=== PATIENT | female | born 1960 | race Caucasian/White ===

== ENCOUNTER 2018-09-20 15:32 | Emergency (ER) | payer OTHER ==
[~2018-09-20] VITALS: Ht 162.6 cm; Wt 90.7 kg
[~2018-09-20 15:32] MED LIST: ASP81CT; DIPH1TAB25 PO; Flexeril; IBUP-1773 PO; MTP25TSR
--- OUTSIDE RECORDS SUMMARY | 2018-09-20 15:37 | XMS REPORT ---
Author Author RACHELE OCHOA [facility] Address [address] [place] [address] Care Team Providers Care Firewall Administrator Name Role Phone RACHELE OCHOA Unavailable PROBLEMS Type Condition ICD9-CM Code [id number] Code Onset Dates Condition Status SNOMED Code Problem Hypercholesterolemia E78.00 Active 80767881 Problem Psoriasis L40.9 Active 0498846 Problem Left shoulder pain M25.512 Active 99496342 Problem Wellness examination Z00.00 Active 484111389 Problem Flexural eczema L20.82 Active 10071555 Problem Other chronic pain G89.29 Active 84031096 ALLERGIES No Information ENCOUNTERS Encounter Location Date Diagnosis [place] [address] [id number] [place] [address] 54843- 0221 May, Hypercholesterolemia E78.00 [facility] [id number] [place] [address] 70535- 9994 May, Wellness examination Z00.00 [place] [id number] [place] [address] 77058- 9760 Apr, Elevated fasting glucose R73.01 and Wellness examination Z00.00 [place] [address] [place] [id number] [place] [address] 37047- 1276 Apr, Elevated fasting glucose R73.01 [facility] [address] [place] [address] 37016- 2690 Apr, [place] [id number] [place] [address] 22121- 3421 Apr, Psoriasis L40.9 [place] [address] [id number] [place] [address] 69092- 6718 Apr, Psoriasis L40.9 [place] [address] [id number] [place] [address] 78602- 2488 March, Psoriasis L40.9 [place] [address] 93748- 7883 Feb, [facility] [id number] [place] [address] 57299- 1700 Feb, [place] [address] 24356- 5019 Jan, Left shoulder pain M25.512 and Flexural eczema L20.82 [facility] WALK IN [place] [id number] [place] [address] 00397 -9718 Jan, Rash R21 [place] [address] 54746- 4566 Oct, Other chronic pain G89.29 and Pain in right shoulder M25.511 [place] [address] 91813- 2682 Apr, Plantar fasciitis of right foot M72.2 [place] [id number] [place] [address] 24620- 6944 March, Plantar fasciitis M72.2 [place] [id number] [place] [address] 52244- 5041 Jan, Impingement syndrome, shoulder, left M75.42 [place] [id number] [place] [address] 80868- 5844 Dec, Impingement syndrome, shoulder, left M75.42 [place] [id number] [place] [address] 26025- 4952 Oct, Left shoulder pain M25.512 and Wellness examination Z00.00 [facility] [id number] [place] [address] 93813 -4885 Oct, Pain in left shoulder M25.512 [place] [address] 34864- 1266 Apr, Plantar fasciitis 728.71 [facility] [address] [id number] [place] [address] 40867- 0051 March, Fasciitis 729.4 and Calcaneal spur 726.73 [facility] [address] [id number], [place] [address]- 4334 Feb, [facility] [address] [id number] [place] [address] 87249- 2449 Feb, [facility] [address] [id number], [place] [address]- 2808 Jan, [facility] [address] [id number] [place] [address] 26161- 2432 Jan, [facility] [address] [place] [id number] [place] [address] 55910- 1276 Jan, [facility] [id number] [place] [address] 93184- 8471 Jan, [facility] [address] [facility] [id number], [place] [address]- 7578 May, [facility] [address] [place] [id number], [place] [address]- 4630 May, [facility] [address] [id number], [place] [address]- 1881 March, [facility] [address] [facility] [id number], [place] [address]- 3508 March, [facility] [address] [facility] [id number][place] 3312 Feb, [facility] [address] [facility] [id number] [place] [address] 373987- 3745 Feb, [facility] [address] [facility] [id number], [place] [address]- 0466 Jan, [facility] [address] [facility] [id number] [place] [address] 94261- 6600 Jan, [facility] [address] [id number] [place] [address]- 5883 Jan, [facility] [place] [facility] [address] [id number] [place] [address]- 7274 Jan, [facility] [place] [facility] [address] [facility] [id number] [place] [address]- 9908 Oct, [facility] [place] [facility] [address] [id number] [place] [address]- 1293 Oct, [facility] [place] [facility] [address] [id number] [place] [address]- 9766 Aug, [facility] [place] [facility] [address] [facility] [id number] [place] [address]- 5375 Jan, [facility] [place] [facility] [address] [facility] [id number] [place] [address]- 7655 Dec, [facility] [place] [facility] [address] [facility] [id number] [place] [address]- 6970 Dec, [facility] [place] [facility] [address] [facility] [id number] [place] [address]- 6368 Nov, [facility] [place] [facility] [address] [facility] [id number] [place] [address]- 0818 Nov, [facility] [place] [facility] [address] [id number], [place] [address]- 7418 Nov, [facility] [place] [facility] [address] [id number] [place] [address]- 4636 Oct, [facility] [place] [facility] [address] [id number] [place] [address]- 8364 Nov, [facility] [place] [facility] [address] [facility] [id number] [place] [address]- 2431 Oct, [facility] [place] [facility] [address] [facility] [id number] [place] [address]- 0054 Sep, [facility] [place] [facility] [address] [facility] [id number] [place] [address]- 2883 Sep, [facility] [address] [facility] [id number], [place] [address]- 7443 Sep, [facility] [address] [facility] [id number] [place] 8502 Oct, IMMUNIZATIONS No Known Immunizations SOCIAL HISTORY Never Assessed REASON FOR VISIT Lab (walk-in) PLAN OF CARE VITAL SIGNS MEDICATIONS Unknown Medications RESULTS No Results PROCEDURES Procedure Date Ordered Result Body Site LIPID PANEL June 19, 2018 COMPLETE CBC W/AUTO DIFF WBC June 19, 2018 VENIPUNCT, ROUTINE* June 19, 2018 ASSAY THYROID STIM HORMONE June 19, 2018 INSTRUCTIONS MEDICATIONS ADMINISTERED No Known Medications MEDICAL (GENERAL) HISTORY Type Description Date Medical History HTN Medical History Unspecified arthropathy, site unspecified Medical History Other seborrheic keratosis
--- OUTSIDE RECORDS SUMMARY | 2018-09-20 15:37 | XMS REPORT ---
Author Author RACHELE OCHOA [facility] Address [address] [place] [address] Care Team Providers Care Acupuncturist Name Role Phone RACHELE OCHOA Unavailable PROBLEMS Type Condition ICD9-CM Code MIK55-QN Code Onset Dates Condition Status SNOMED Code Problem Hypercholesterolemia E78.00 Active 43201529 Problem Psoriasis L40.9 Active 6186422 Problem Left shoulder pain M25.512 Active 27185891 Problem Wellness examination Z00.00 Active 067968705 Problem Flexural eczema L20.82 Active 48576276 Problem Other chronic pain G89.29 Active 03986960 ALLERGIES No Information ENCOUNTERS Encounter Location Date Diagnosis [place] [address] [place] [address] 82227- 6925 May, Hypercholesterolemia E78.00 [facility] [id number] [place] [address] 45996- 9080 May, Wellness examination Z00.00 [place] [id number] [place] [address] 48120- 7988 Apr, Elevated fasting glucose R73.01 and Wellness examination Z00.00 [place] [address] [address] [id number] [place] [address] 45474- 3835 Apr, Elevated fasting glucose R73.01 [facility] [address] [place] [address] 52140- 3459 Apr, [place] [address] [id number] [place] [address] 40480- 5903 Apr, Psoriasis L40.9 [place] [address] [place] [address] [id number] [place] [address] 66600- 6465 Apr, Psoriasis L40.9 [place] [address] [address] [id number] [place] [address] 58619- 8558 March, Psoriasis L40.9 [place] [address] 13115- 3480 Feb, [facility] [address] [id number] [place] [address] 39121- 5287 Feb, [place] [address] 41616- 3635 Jan, Left shoulder pain M25.512 and Flexural eczema L20.82 [facility] WALK IN [place] [id number] [place] [address] 69061 -8571 Jan, Rash R21 [place] [address] 00978- 7420 Oct, Other chronic pain G89.29 and Pain in right shoulder M25.511 [place] [address] 32694- 1869 Apr, Plantar fasciitis of right foot M72.2 [place] [address] [id number] [place] [address] 09977- 3601 March, Plantar fasciitis M72.2 [place] [address] [id number] [place] [address] 41807- 6821 Jan, Impingement syndrome, shoulder, left M75.42 [place] [address] [address] [id number] [place] [address] 91830- 1826 Dec, Impingement syndrome, shoulder, left M75.42 [place] [address] [address] [id number] [place] [address] 02709- 0068 Oct, Left shoulder pain M25.512 and Wellness examination Z00.00 [facility] W[facility] [id number] [place] [address] 51999 -7084 Oct, Pain in left shoulder M25.512 [place] [address] 84146- 9026 Apr, Plantar fasciitis 728.71 [facility] [id number] [place] [address] 59714- 2186 March, Fasciitis 729.4 and Calcaneal spur 726.73 [facility] [address] [id number], [place] [address]- 4136 Feb, [facility] [id number] [place] [address] 55996- 6106 Feb, [facility] [address] [id number], [place] [address]- 6502 Jan, [facility] [address] [id number] [place] [address] 59499- 4386 Jan, [facility] [address] [place] [id number] [place] [address] 83984- 5897 Jan, [facility] [address] [id number] [place] [address] 18200- 9822 Jan, [facility] [address] [facility] [place] [id number], [place] [address]- 5580 May, [facility] [address] [place] [id number], [place] [address]- 7274 May, [facility] [address] [place] [id number], [place] [address]- 7430 March, [facility] [address] [facility] [id number], [place] [address]- 0698 March, [facility] [address] [facility] [id number] 6534 Feb, [facility] [address] [facility] [id number] [place] [address] 737651- 9275 Feb, [facility] [address] [facility] [id number], [place] [address]- 9919 Jan, [facility] [address] [facility] [id number] [place] [address] 05666- 1550 Jan, [facility] [address] [id number] [place] [address]- 5658 Jan, [facility] [place] [facility] [address] [id number] [place] [address]- 7090 Jan, [facility] [place] [facility] [address] [facility] [id number] [place] [address]- 2983 Oct, [facility] [place] [facility] [address] [id number] [place] [address]- 8113 Oct, [facility] [place] [facility] [address] [id number] [place] [address]- 7335 Aug, [facility] [place] [facility] [address] [facility] [id number] [place] [address]- 7335 Jan, [facility] [place] [facility] [address] [facility] [id number] [place] [address]- 1315 Dec, [facility] [place] [facility] [address] [facility] [id number] [place] [address]- 6764 Dec, [facility] [place] [facility] [address] [facility] [place] [id number] [place] [address]- 7613 Nov, [facility] [place] [facility] [address] [facility] [id number] [place] [address]- 4524 Nov, [facility] [place] [facility] [address] [id number], [place] [address]- 9277 Nov, [facility] [place] [facility] [address] [id number] [place] [address]- 0149 Oct, [facility] [place] [facility] [address] [id number] [place] [address]- 8390 Nov, [facility] [place] [facility] [address] [facility] [id number] [place] [address]- 6433 Oct, [facility] [place] [facility] [address] [facility] [id number] [place] [address]- 2457 Sep, [facility] [place] [facility] [address] [facility] [id number] [place] [address]- 6176 Sep, [facility] [address] [facility] [id number], [place] [address]- 9279 05 Sep, 2009 [facility] [address] [facility] [id number] [place]- 8790 Oct, IMMUNIZATIONS No Known Immunizations SOCIAL HISTORY Never Assessed REASON FOR VISIT Lab (walk-in) PLAN OF CARE VITAL SIGNS MEDICATIONS Unknown Medications RESULTS No Results PROCEDURES Procedure Date Ordered Result Body Site COMPREHEN METABOLIC PANEL May 18, 2018 MANUAL CELL COUNT, EACH May 18, 2018 VENIPUNCT, ROUTINE* May 18, 2018 INSTRUCTIONS MEDICATIONS ADMINISTERED No Known Medications MEDICAL (GENERAL) HISTORY Type Description Date Medical History HTN Medical History Unspecified arthropathy, site unspecified Medical History Other seborrheic keratosis
--- OUTSIDE RECORDS SUMMARY | 2018-09-20 15:37 | XMS REPORT ---
Author Author RACHELE OCHOA [facility] Address [address] [place] [address] Care Team Providers Care Transportation Supervisor Name Role Phone RACHELE OCHOA Unavailable PROBLEMS Type Condition ICD9-CM Code HBV26-VK Code Onset Dates Condition Status SNOMED Code Problem Hypercholesterolemia E78.00 Active 05501637 Problem Psoriasis L40.9 Active 2387346 Problem Left shoulder pain M25.512 Active 38873554 Problem Wellness examination Z00.00 Active 938071653 Problem Flexural eczema L20.82 Active 42232380 Problem Other chronic pain G89.29 Active 31221521 ALLERGIES No Information ENCOUNTERS Encounter Location Date Diagnosis [place] [address] [place] [id number] [place] [address] 56158- 5584 May, Hypercholesterolemia E78.00 [facility] [id number] [place] [address] 41327- 2560 May, Wellness examination Z00.00 [place] [id number] [place] [address] 73609- 5147 Apr, Elevated fasting glucose R73.01 and Wellness examination Z00.00 [place] [address] [place] [id number] [place] [address] 66622- 5217 Apr, Elevated fasting glucose R73.01 [facility] [address] [place] [address] 59618- 8129 Apr, [place] [id number] [place] [address] 48842- 4387 Apr, Psoriasis L40.9 [place] [address] [place] [id number] [place] [address] 92186- 7637 Apr, Psoriasis L40.9 [place] [address] [place] [id number] [place] [address] 15409- 6254 March, Psoriasis L40.9 [place] [address] 85874- 1655 Feb, [facility] [address] [id number] [place] [address] 05501- 6247 Feb, [place] [address] 22403- 2347 Jan, Left shoulder pain M25.512 and Flexural eczema L20.82 [facility] WALK IN [place] [id number] [place] [address] 52132 -0820 Jan, Rash R21 [place] [address] 60973- 9628 Oct, Other chronic pain G89.29 and Pain in right shoulder M25.511 [place] [address] 57145- 0017 Apr, Plantar fasciitis of right foot M72.2 [place] [address] [place] [address] [id number] [place] [address] 92170- 9883 March, Plantar fasciitis M72.2 [place] [address] [place] [id number] [place] [address] 03344- 7100 Jan, Impingement syndrome, shoulder, left M75.42 [place] [address] [place] [id number] [place] [address] 58952- 0316 Dec, Impingement syndrome, shoulder, left M75.42 [place] [address] [place] [id number] [place] [address] 01401- 9001 Oct, Left shoulder pain M25.512 and Wellness examination Z00.00 [facility] [id number] [place] [address] 96676 -2093 Oct, Pain in left shoulder M25.512 [place] [address] 82953- 1656 Apr, Plantar fasciitis 728.71 [facility] [id number] [place] [address] 42092- 8400 March, Fasciitis 729.4 and Calcaneal spur 726.73 [facility] [address] [id number] [place] [address]- 6778 Feb, [facility] [address] [id number] [place] [address] 81833- 7123 Feb, [facility] [address] [id number] [place] [address]- 9080 Jan, [facility] [address] [id number] [place] [address] 70203- 7291 Jan, [facility] [address] [place] [id number] [place] [address] 49030- 3997 Jan, [facility] [id number] [place] [address] 13614- 1689 Jan, [facility] [address] [facility] [id number] [place] [address]- 2339 May, [facility] [address] [place] [address] [id number] [place] [address]- 3245 May, [facility] [address] [place] [address] [id number] [place] [address]- 5627 March, [facility] [address] [facility] [id number] [place] [address]- 7750 March, [facility] [address] [facility] [id number] [place] 0834 Feb, [facility] [address] [facility] [id number] [place] [address] 581594- 6877 Feb, [facility] [address] [facility] [id number] [place] [address]- 4424 Jan, [facility] [address] [facility] [id number] [place] [address] 68638- 2874 Jan, [facility] [address] [id number] [place] [address]- 7243 Jan, [facility] [place] [facility] [address] [id number] [place] [address]- 7698 Jan, [facility] [place] [facility] [address] [facility] [id number] [place] [address]- 5335 Oct, [facility] [place] [facility] [address] [id number] [place] [address]- 7692 Oct, [facility] [place] [facility] [address] [id number] [place] [address] Aug, [facility] [place] [facility] [address] [facility] [id number] [place] [address] Jan, [facility] [place] [facility] [address] [facility] [id number] [place] [address] Dec, [facility] [place] [facility] [address] [facility] [id number] [place] [address] Dec, [facility] [place] [facility] [address] [facility] [id number] [place] [address] Nov, [facility] [place] [facility] [address] [facility] [id number] [place] [address] Nov, [facility] [place] [facility] [address] [id number] [place] [address] Nov, [facility] [place] [facility] [address] [id number] [place] [address] Oct, [facility] [place] [facility] [address] [id number] [place] [address] Nov, [facility] [place] [facility] [address] [facility] [id number] [place] [address] Oct, [facility] [place] [facility] [address] [facility] [id number] [place] [address] Sep, [facility] [place] [facility] [address] [facility] [id number] [place] [id number] Sep, [facility] [address] [facility] [id number] [place] [address] Sep, [facility] [address] [facility] [id number] [place] [address] Oct, IMMUNIZATIONS No Known Immunizations SOCIAL HISTORY Never Assessed REASON FOR VISIT Lab (walk-in) PLAN OF CARE VITAL SIGNS MEDICATIONS Unknown Medications RESULTS No Results PROCEDURES Procedure Date Ordered Result Body Site GLYCATED HEMOGLOBIN TEST May 26, 2018 INSTRUCTIONS MEDICATIONS ADMINISTERED No Known Medications MEDICAL (GENERAL) HISTORY Type Description Date Medical History HTN Medical History Unspecified arthropathy, site unspecified Medical History Other seborrheic keratosis
--- OUTSIDE RECORDS SUMMARY | 2018-09-20 15:37 | XMS REPORT ---
Author Author RACHELE OCHOA [facility] Address [address] [place] [address] Care Team Providers Care Painter Apprentice Name Role Phone RACHELE OCHOA Unavailable PROBLEMS Type Condition ICD9-CM Code [id number] Code Onset Dates Condition Status SNOMED Code Problem Hypercholesterolemia E78.00 Active 14115590 Problem Psoriasis L40.9 Active 7046095 Problem Left shoulder pain M25.512 Active 63058426 Problem Wellness examination Z00.00 Active 235133731 Problem Flexural eczema L20.82 Active 45638737 Problem Other chronic pain G89.29 Active 94133002 ALLERGIES Substance Reaction Event Type Date Status Beta-blockers (beta-adrenergic Blocking Agts) Depression Non Drug Allergy March, Active ENCOUNTERS Encounter Location Date Diagnosis [place] [address] [place] [id number] [place] [address] 81311- 5406 May, Hypercholesterolemia E78.00 [facility] [id number] [place] [address] 78812- 7253 May, Wellness examination Z00.00 [facility] [id number] [place] [address] 71519- 9103 Apr, Elevated fasting glucose R73.01 and Wellness examination Z00.00 [facility] [id number] [place] [address] 79063- 0210 Apr, Elevated fasting glucose R73.01 [facility] [id number] [place] [address] 41282- 4101 Apr, [facility] [id number] [place] [address] 63709- 8775 Apr, Psoriasis L40.9 [facility] [address] 29185- 4206 Apr, Psoriasis L40.9 [place] [id number] [place] [address] 76548- 7085 March, Psoriasis L40.9 [place] [id number] [place] [address] 30358- 7561 Feb, [place] [address] 78590- 9062 Feb, [place] [address] 33188- 8426 Jan, Left shoulder pain M25.512 and Flexural eczema L20.82 [facility] [place] [address] 54082 -5745 Jan, Rash R21 [place] [address] 45410- 9362 Oct, Other chronic pain G89.29 and Pain in right shoulder M25.511 [place] [address] 89860- 6181 Apr, Plantar fasciitis of right foot M72.2 [place] [address] 48844- 2358 March, Plantar fasciitis M72.2 [place] [address] 14271- 6564 Jan, Impingement syndrome, shoulder, left M75.42 [place] [id number] [place] [address] 38227- 2377 Dec, Impingement syndrome, shoulder, left M75.42 [place] [address] 85983- 8491 Oct, Left shoulder pain M25.512 and Wellness examination Z00.00 [facility] [id number] [place] [address] 71036 -9777 Oct, Pain in left shoulder M25.512 [facility] [address] [place] [address] [id number] [place] [address]- 1508 Apr, Plantar fasciitis 728.71 [facility] [id number] [place] [address]- 3176 March, Fasciitis 729.4 and Calcaneal spur 726.73 [facility] [id number] [place] [address], [place] [address]- 9600 Feb, [facility] [address] [facility] [id number] [place] [address]- 8680 Feb, [facility] [id number] [place] [address], [place]- 9562 Jan, [facility] [id number] [place] [address]- 9173 Jan, [facility] [id number] [place] [address], [place] [address]- 7676 Jan, [facility] [address] [address]- 7860 Jan, [facility] [id number] [place] [address]- 4012 May, [facility] [address] [address]- 0994 May, [facility] [address] [address]- 0576 March, [facility] [address] [place] [address] [id number] [address]- 3966 March, [facility] [address] [place] [address] [id number] [place] [address]- 4432 Feb, [facility] [address] [facility] [id number] [place] [address]- 5376 Feb, [facility] [address] [address]- 2835 Jan, [facility] [address] [id number] [place] [address]- 0276 Jan, [facility] [place] [facility] [address] [id number] [place] [address]- 7123 Jan, [facility] [place] [facility] [address] [id number] [place] [address]- 3286 Jan, [facility] [place] [facility] [address] [id number] [place] [address]- 9111 Oct, [facility] [place] [facility] [address] [id number] [place] [address]- 9866 Oct, [facility] [place] [facility] [address] [id number] [place] [address]- 0302 Aug, [facility] [place] [facility] [address] [id number] [place] [address]- 8892 Jan, [facility] [place] [facility] [address] [id number] [place] [address]- 1543 Dec, [facility] [place] [facility] [address] [id number] [place] [address]- 1866 Dec, [facility] [place] [facility] [address] [id number] [place] [address]- 7363 Nov, [facility] [place] [facility] [address] [id number] [place] [address]- 9298 Nov, [facility] [place] [facility] [address] [id number] [address]- 2694 Nov, [facility] [place] [facility] [address] [id number] [place] [address]- 8647 Oct, [facility] [place] [facility] [address] [id number] [place] [address]- 6005 Nov, [facility] [place] [facility] [address] [id number] [place] [address]- 6817 Oct, [facility] [place] [facility] [address] [facility] [id number] [place] [address]- 6272 Sep, [facility] [address] [facility] [id number] [address]- 5144 Sep, [facility] [address] [facility] [id number] [place] [address]- 4267 Sep, [facility] [address] [facility] [id number] [place] [address]- 0742 Oct, IMMUNIZATIONS No Known Immunizations SOCIAL HISTORY Never Assessed REASON FOR VISIT Rash (not getting better) , patient states she has been seen before for the same problem and is not getting better -- anna ulrich PLAN OF CARE Activity Details Follow Up for WWE Reason: VITAL SIGNS Height 63 in 2018-03-30 Weight 188.0 lbs 2018-03-30 Temperature 97.1 degrees Fahrenheit 2018-03-30 BMI 33.30 kg/m2 2018-03-30 Blood pressure systolic 118 mmHg 2018-03-30 Blood pressure diastolic 72 mmHg 2018-03-30 MEDICATIONS Medication Instructions Dosage Frequency Start Date End Date Duration Status Triamcinolone Acetonide 0.1 % Externally Twice a day 1 application to affected area 12Jan, Active Naproxen 500 mg Orally every 12 hrs 1 tablet with food or milk as needed Jan, Active Fluocinonide 0.05 % Externally 2 times a day small amount March, Apr, 30 days Active Clobetasol Prop & Cleanser 0.05 % Externally 2 times a day apply to scalp March, Apr, 14 days Active RESULTS No Results PROCEDURES No Known procedures INSTRUCTIONS MEDICATIONS ADMINISTERED No Known Medications MEDICAL (GENERAL) HISTORY Type Description Date Medical History HTN Medical History Unspecified arthropathy, site unspecified Medical History Other seborrheic keratosis
--- OUTSIDE RECORDS SUMMARY | 2018-09-20 15:37 | XMS REPORT ---
Author Author RACHELE OCHOA [facility] Address [address] [place] [address] Care Team Providers Care Rail Car Mechanic Name Role Phone RACHELE OCHOA Unavailable PROBLEMS Type Condition ICD9-CM Code [id number] Code Onset Dates Condition Status SNOMED Code Problem Hypercholesterolemia E78.00 Active 29943975 Problem Psoriasis L40.9 Active 6205818 Problem Left shoulder pain M25.512 Active 97381398 Problem Wellness examination Z00.00 Active 649801219 Problem Flexural eczema L20.82 Active 96661102 Problem Other chronic pain G89.29 Active 19491984 ALLERGIES No Information ENCOUNTERS Encounter Location Date Diagnosis [place] [address] [place] [id number] [place] [address] 28686- 4104 May, Hypercholesterolemia E78.00 [facility] [id number] [place] [address] 04311- 9409 May, Wellness examination Z00.00 [place] [id number] [place] [address] 24531- 8232 Apr, Elevated fasting glucose R73.01 and Wellness examination Z00.00 [place] [address] [place] [id number] [place] [address] 06617- 8729 Apr, Elevated fasting glucose R73.01 [facility] [id number] [place] [address] 31242- 9850 Apr, [place] [address] [place] [id number] [place] [address] 75557- 9726 Apr, Psoriasis L40.9 [place] [address] [place] [id number] [place] [address] 19750- 4848 Apr, Psoriasis L40.9 [place] [address] [place] [id number] [place] [address] 64260- 4629 March, Psoriasis L40.9 [place] [address] 08031- 8479 Feb, [facility] [address] [place] [id number] [place] [address] 01298- 2166 Feb, [place] [address] 78256- 8066 Jan, Left shoulder pain M25.512 and Flexural eczema L20.82 [facility] [place] [address] [address] [id number] [place] [address] 75238 -2993 Jan, Rash R21 [place] [address] 28565- 7481 Oct, Other chronic pain G89.29 and Pain in right shoulder M25.511 [place] [address] 09346- 6857 Apr, Plantar fasciitis of right foot M72.2 [place] [address] [place] [id number] [place] [address] 57786- 0840 March, Plantar fasciitis M72.2 [place] [address] [place] [id number] [place] [address] 99184- 0316 Jan, Impingement syndrome, shoulder, left M75.42 [place] [address] [place] [id number] [place] [address] 81412- 4314 Dec, Impingement syndrome, shoulder, left M75.42 [place] [address] [place] [id number] [place] [address] 02294- 0501 Oct, Left shoulder pain M25.512 and Wellness examination Z00.00 [facility] [address] [place] [address] [id number] [place] [address] 60618 -1019 Oct, Pain in left shoulder M25.512 [place] [address] 74461- 3606 Apr, Plantar fasciitis 728.71 [facility] [id number] [place] [address] 07029- 0552 March, Fasciitis 729.4 and Calcaneal spur 726.73 [facility] [address] [id number] [address]- 7154 Feb, [facility] [id number] [place] [address] 25246- 5842 Feb, [facility] [address] [id number], [place] [address]- 3201 Jan, [facility] [id number] [place] [address] 04245- 5028 Jan, [facility] [address] [place] [id number] [place] [address] 26348- 3741 Jan, [facility] [address] [place] [id number] [place] [address] 18401- 6490 Jan, [facility] [address] [facility] [id number][place] [address]- 2555 May, [facility] [address] [id number], [place] [address]- 5559 May, [facility] [address] [id number], [place] [address]- 2889 March, [facility] [address] [facility] [id number], [place] [address]- 9492 March, [facility] [address] [facility] [id number]- 4961 Feb, [facility] [address] [facility] [id number] [place] [address] 346431- 5839 Feb, [facility] [address] [facility] [id number], [place] [address]- 2575 Jan, [facility] [address] [facility] [id number] [place] [address] 15193- 3762 Jan, [facility] [address] [id number] [place] [address]- 5917 Jan, [facility] [place] [facility] [address] [id number] [place] [address]- 6227 Jan, [facility] [place] [facility] [address] [facility] [id number] [place] [address]- 5884 Oct, [facility] [place] [facility] [address] [id number] [place] [address]- 6827 Oct, [facility] [place] [facility] [address] [id number] [place] [address]- 3066 Aug, [facility] [place] [facility] [address] [facility] [id number] [place] [address]- 3212 Jan, [facility] [place] [facility] [address] [facility] [id number] [place] [address]- 5871 Dec, [facility] [place] [facility] [address] [facility] [id number] [place] [address]- 5813 Dec, [facility] [place] [facility] [address] [facility] [id number] [place] [address]- 9204 Nov, [facility] [place] [facility] [address] [facility] [id number] [place] [address]- 9477 Nov, [facility] [place] [facility] [address] [id number], [place] [address]- 7085 Nov, [facility] [place] [facility] [address] [id number] [place] [address]- 1589 Oct, [facility] [place] [facility] [address] [id number] [place] [address]- 0119 Nov, [facility] [place] [facility] [address] [facility] [id number] [place] [address]- 0718 Oct, [facility] [place] [facility] [address] [facility] [id number] [place] [address]- 2512 Sep, [facility] [place] [facility] [address] [facility] [id number] [place] [address]- 4857 Sep, [facility] [address] [facility] [id number] [place] [address]- 0907 Sep, [facility] [address] [facility] [id number] [place] [address]- 4473 Oct, IMMUNIZATIONS No Known Immunizations SOCIAL HISTORY Never Assessed REASON FOR VISIT deferred lab PLAN OF CARE VITAL SIGNS MEDICATIONS Unknown Medications RESULTS No Results PROCEDURES No Known procedures INSTRUCTIONS MEDICATIONS ADMINISTERED No Known Medications MEDICAL (GENERAL) HISTORY Type Description Date Medical History HTN Medical History Unspecified arthropathy, site unspecified Medical History Other seborrheic keratosis
--- OUTSIDE RECORDS SUMMARY | 2018-09-20 15:37 | XMS REPORT ---
Author Author RACHELE OCHOA [facility] [address] Address [address] [place] [address] Care Team Providers Care Barnworker Groom Name Role Phone RACHELE OCHOA Unavailable PROBLEMS Type Condition ICD9-CM Code PAW14-LP Code Onset Dates Condition Status SNOMED Code Problem Hypercholesterolemia E78.00 Active 30494605 Problem Psoriasis L40.9 Active 7144968 Problem Left shoulder pain M25.512 Active 30137080 Problem Wellness examination Z00.00 Active 566172628 Problem Flexural eczema L20.82 Active 68817716 Problem Other chronic pain G89.29 Active 70729026 ALLERGIES No Information ENCOUNTERS Encounter Location Date Diagnosis [place] [address] [place] [id number] [place] [address] 86054- 3359 May, Hypercholesterolemia E78.00 [facility] [address] [place] [address] [id number] [place] [address] 96639- 3991 May, Wellness examination Z00.00 [place] [address] [place] [id number] [place] [address] 26886- 1522 Apr, Elevated fasting glucose R73.01 and Wellness examination Z00.00 [place] [address] [place] [id number] [place] [address] 05246- 1881 Apr, Elevated fasting glucose R73.01 [facility] [address] [place] [address] 46065- 0847 Apr, [place] [address] [place] [id number] [place] [address] 42738- 5729 Apr, Psoriasis L40.9 [place] [address] [place] [id number] [place] [address] 42071- 5680 Apr, Psoriasis L40.9 [place] [address] [place] [id number] [place] [address] 77909- 6767 March, Psoriasis L40.9 [place] [address] 11336- 0634 Feb, [facility] [address] [place] [id number] [place] [address] 17530- 6861 Feb, [place] [address] 64884- 1379 Jan, Left shoulder pain M25.512 and Flexural eczema L20.82 [facility] WALK IN [place] [address] [place] [id number] [place] [address] 83393 -7371 Jan, Rash R21 [place] [address] 50077- 8605 Oct, Other chronic pain G89.29 and Pain in right shoulder M25.511 [place] [address] 03642- 1117 Apr, Plantar fasciitis of right foot M72.2 [place] [address] [place] [id number] [place] [address] 62037- 9931 March, Plantar fasciitis M72.2 [place] [address] [place] [id number] [place] [address] 55758- 1558 Jan, Impingement syndrome, shoulder, left M75.42 [place] [address] [place] [id number] [place] [address] 84154- 4210 Dec, Impingement syndrome, shoulder, left M75.42 [place] [address] [place] [id number] [place] [address] 00488- 8304 Oct, Left shoulder pain M25.512 and Wellness examination Z00.00 [facility] [address] [place] [address] [id number] [place] [address] 20364 -4044 Oct, Pain in left shoulder M25.512 [place] [address] 18192- 5006 Apr, Plantar fasciitis 728.71 [facility] [id number] [place] [address] 31311- 8432 March, Fasciitis 729.4 and Calcaneal spur 726.73 [facility] [address] [id number] [address]- 0192 Feb, [facility] [address] [id number] [place] [address] 17167- 1285 Feb, [facility] [address] [id number], [place] [address]- 3056 Jan, [facility] [address] [id number] [place] [address] 91659- 5748 Jan, [facility] [address] [place] [id number] [place] [address] 49016- 2816 Jan, [facility] [address] [place] [id number] [place] [address] 32833- 4038 Jan, [facility] [address] [facility] [id number][place] [address]- 4120 May, [facility] [address] [place] [id number] [address]- 4081 May, [facility] [address] [place] [id number] [address]- 0751 March, [facility] [address] [facility] [id number], [place] [address]- 0576 March, [facility] [address] [facility] [id number] 4722 Feb, [facility] [address] [facility] [id number] [place] [address] 376491- 2409 Feb, [facility] [address] [facility] [id number], [place] [address]- 1515 Jan, [facility] [address] [facility] [id number] [place] [address] 77552- 7566 Jan, [facility] [address] [id number] [place] [address]- 0805 Jan, [facility] [place] [facility] [address] [id number] [place] [address]- 9220 Jan, [facility] [place] [facility] [address] [facility] [id number] [place] [address]- 1163 Oct, [facility] [place] [facility] [address] [id number] [place] [address]- 9812 Oct, [facility] [place] [facility] [address] [id number] [place] [address]- 5795 Aug, [facility] [place] [facility] [address] [facility] [id number] [place] [address]- 9117 Jan, [facility] [place] [facility] [address] [facility] [id number] [place] [address]- 7282 Dec, [facility] [place] [facility] [address] [facility] [id number] [place] [address] Dec, [facility] [place] [facility] [address] [facility] [id number] [place] [address] Nov, [facility] [place] [facility] [address] [facility] [id number] [place] [address] Nov, [facility] [place] [facility] [address] [id number], [place] [address] Nov, [facility] [place] [facility] [address] [id number] [place] [address] Oct, [facility] [place] [facility] [address] [id number] [place] [address] Nov, [facility] [place] [facility] [address] [facility] [id number] [place] [address] Oct, [facility] [place] [facility] [address] [facility] [id number] [place] [address] Sep, [facility] [place] [facility] [address] [facility] [id number] [place] [address] Sep, [facility] [address] [facility] [id number] [address] Sep, [facility] [address] [facility] [id number] [place] [address] Oct, IMMUNIZATIONS No Known Immunizations SOCIAL HISTORY Never Assessed REASON FOR VISIT Lab results PLAN OF CARE VITAL SIGNS MEDICATIONS Unknown Medications RESULTS No Results PROCEDURES No Known procedures INSTRUCTIONS MEDICATIONS ADMINISTERED No Known Medications MEDICAL (GENERAL) HISTORY Type Description Date Medical History HTN Medical History Unspecified arthropathy, site unspecified Medical History Other seborrheic keratosis
--- OUTSIDE RECORDS SUMMARY | 2018-09-20 15:38 | XMS REPORT ---
Author Author MORRO RAHMAN [facility] [address] Address [address] [place] [address] Care Team Providers Care Enterprise Sales Executive Name Role Phone MORRO RAHMAN Unavailable PROBLEMS Type Condition ICD9-CM Code IVK52-SW Code Onset Dates Condition Status SNOMED Code Problem Psoriasis L40.9 Active 4804608 Problem Flexural eczema L20.82 Active 96625250 Problem Wellness examination Z00.00 Active 717308964 Problem Other chronic pain G89.29 Active 46637696 Problem Left shoulder pain M25.512 Active 33081986 ALLERGIES Substance Reaction Event Type Date Status Beta-blockers (beta-adrenergic Blocking Agts) Depression Non Drug Allergy Jan, Active ENCOUNTERS Encounter Location Date Diagnosis [place] [id number] [place] [address] 87531- 9329 Apr, Elevated fasting glucose R73.01 and Wellness examination Z00.00 [place] [id number] [place] [address] 35026- 3817 Apr, Elevated fasting glucose R73.01 [place] [id number] [place] [address] 98980- 5287 Apr, [place] [id number] [place] [address] 87961- 3036 Apr, Psoriasis L40.9 [place] [id number] [place] [address] 43477- 9459 Apr, Psoriasis L40.9 [place] [id number] [place] [address] 32394- 2003 March, Psoriasis L40.9 [place] [id number] [place] [address] 14493- 3098 Feb, [place] [id number] [place] [address] 93647- 9892 Feb, [place] [address] 03138- 3182 Jan, Left shoulder pain M25.512 and Flexural eczema L20.82 [facility] WALK IN [facility] [address] [address] -[address]245 Jan, Rash R21 [place] [address] 48191- 5736 Oct, Other chronic pain G89.29 and Pain in right shoulder M25.511 [place] [address] 96762- 8865 Apr, Plantar fasciitis of right foot M72.2 [place] [address] 28010- 6222 March, Plantar fasciitis M72.2 [place] [address] 37759- 9892 Jan, Impingement syndrome, shoulder, left M75.42 [place] [address] 85623- 0201 Dec, Impingement syndrome, shoulder, left M75.42 [place] [id number] [place] [address] 20679- 3315 Oct, Left shoulder pain M25.512 and Wellness examination Z00.00 [facility] WALK IN CARE [id number] [place] [address] 31770 -8936 Oct, Pain in left shoulder M25.512 [place] [address] 43466- 0234 Apr, Plantar fasciitis 728.71 [place] [address] 32863- 6945 March, Fasciitis 729.4 and Calcaneal spur 726.73 [facility] [place] [facility] [address] [id number] [place] [address]- 2345 14 Feb, 2015 [facility] [place] [facility] [address] [id number] [place] [address]- 8387 13 Feb, 2015 [facility] [place] [facility] [address] [id number] [place] [address]- 2078 25 Jan, 2015 [facility] [place] [facility] [address] [id number] [place] [address]- 9056 25 Jan, 2015 [facility] [place] [facility] [address] [id number] [place] [address]- 8401 16 Jan, 2015 [facility] [place] [facility] [address] [id number] [place] [address]- 1253 16 Jan, 2015 [facility] [place] [facility] [address] [id number] [place] [address]- 5758 May, [facility] [place] [facility] [address] [id number] [place] [address]- 5150 May, [facility] [place] [facility] [address] [id number] [place] [address]- 8417 March, [facility] [place] [facility] [address] [id number] [place] [address]- 7266 March, [facility] [place] [facility] [address] [id number] [place] [address]- 3432 Feb, [facility] [place] [facility] [address] [id number] [place] [address]- 5973 Feb, [facility] [place] [facility] [address] [id number] [place] [address]- 7438 Jan, [facility] [place] [facility] [address] [id number] [place] [address]- 7717 Jan, [facility] [place] [facility] [address] [id number] [place] [address]- 4138 Jan, [facility] [place] [facility] [address] [id number] [place] [address]- 9265 Jan, [facility] [address] [id number] [place] [address]- 1109 Oct, [facility] [place] [facility] [address] [id number] [place] [address]- 4239 Oct, [facility] [place] [facility] [address] [facility] [id number] [place] [address]- 8113 Aug, [facility] [place] [facility] [address] [id number] [place] [address]- 6874 Jan, [facility] [place] [facility] [address] [id number] [place] [address]- 0331 Dec, [facility] [place] [facility] [address] [facility] [id number] [place] [address]- 2096 Dec, [facility] [place] [facility] [address] [facility] [id number] [place] [address]- 6671 Nov, [facility] [place] [facility] [address] [id number] [place] [address]- 7456 Nov, [facility] [place] [facility] [address] [id number] [place] [address]- 4636 Nov, [facility] [place] [facility] [address] [facility] [id number] [place] [address]- 3085 Oct, [facility] [place] [facility] [address] [id number], [place] [address]- 2080 Nov, [facility] [place] [facility] [address] [id number], [place] [address]- 1130 Oct, [facility] [place] [facility] [address] [id number], [place] [address]- 1976 Sep, [facility] [place] [facility] [address] [facility] [id number], [place] [address]- 9747 Sep, [facility] [place] [facility] [address] [facility] [id number], [place] [address]- 2546 Sep, [facility] [place] [facility] [address] [facility] [id number] [place] [address]- 8973 Oct, IMMUNIZATIONS No Known Immunizations SOCIAL HISTORY Never Assessed REASON FOR VISIT rash Pt c/o rash on legs, arms and scalp for about a month, states does itch a little, feels as if something is poking her at times, states the rash is getting worse. FERNANDA Adrian PLAN OF CARE Activity Details Follow Up prn Reason: VITAL SIGNS Height 63 in 2018-02-16 Weight 187.6 lbs 2018-02-16 Temperature 97.7 degrees Fahrenheit 2018-02-16 Heart Rate 84 bpm 2018-02-16 Respiratory Rate 20 2018-02-16 BMI 33.23 kg/m2 2018-02-16 Blood pressure systolic 136 mmHg 2018-02-16 Blood pressure diastolic 96 mmHg 2018-02-16 MEDICATIONS Medication Instructions Dosage Frequency Start Date End Date Duration Status HydrOXYzine HCl 50 mg Orally every 6 hrs 1 tablet as needed 6h Jan, Active Flexeril Not-Taking Ibuprofen 200 MG Orally at bedtime as needed 2 tablets Active RESULTS No Results PROCEDURES No Known procedures INSTRUCTIONS MEDICATIONS ADMINISTERED No Known Medications MEDICAL (GENERAL) HISTORY Type Description Date Medical History HTN Medical History Unspecified arthropathy, site unspecified Medical History Other seborrheic keratosis
--- OUTSIDE RECORDS SUMMARY | 2018-09-20 15:38 | XMS REPORT ---
Author Author RACHELE OCHOA [facility] Address [address] [place] [address] Care Team Providers Care Salon Designer Name Role Phone RACHELE OCHOA Unavailable PROBLEMS Type Condition ICD9-CM Code JJP23-GV Code Onset Dates Condition Status SNOMED Code Problem Hypercholesterolemia E78.00 Active 74057339 Problem Psoriasis L40.9 Active 7250215 Problem Left shoulder pain M25.512 Active 33800966 Problem Wellness examination Z00.00 Active 482727701 Problem Flexural eczema L20.82 Active 12471958 Problem Other chronic pain G89.29 Active 44426462 ALLERGIES No Information ENCOUNTERS Encounter Location Date Diagnosis [place] [address] [place] [address] 49716- 8302 May, Hypercholesterolemia E78.00 [facility] [id number] [place] [address] 78168- 1587 May, Wellness examination Z00.00 [place] [id number] [place] [address] 81091- 3893 Apr, Elevated fasting glucose R73.01 and Wellness examination Z00.00 [place] [id number] [place] [address] 53451- 5983 Apr, Elevated fasting glucose R73.01 [facility] [address] [place] [address] 97851- 2385 Apr, [place] [id number] [place] [address] 80320- 0941 Apr, Psoriasis L40.9 [place] [id number] [place] [address] 19820- 1664 Apr, Psoriasis L40.9 [place] [id number] [place] [address] 17306- 5874 March, Psoriasis L40.9 [place] [address] 63068- 0177 Feb, [facility] [id number] [place] [address] 53922- 5996 Feb, [place] [address] 94055- 3242 Jan, Left shoulder pain M25.512 and Flexural eczema L20.82 [facility] WALK IN [place] [id number] [place] [address] 20913 -8600 Jan, Rash R21 [place] [address] 07099- 3719 Oct, Other chronic pain G89.29 and Pain in right shoulder M25.511 [place] [address] 51644- 3087 Apr, Plantar fasciitis of right foot M72.2 [place] [id number] [place] [address] 11634- 6715 March, Plantar fasciitis M72.2 [place] [id number] [place] [address] 94149- 2838 Jan, Impingement syndrome, shoulder, left M75.42 [place] [id number] [place] [address] 64360- 3513 Dec, Impingement syndrome, shoulder, left M75.42 [place] [id number] [place] [address] 65428- 8818 Oct, Left shoulder pain M25.512 and Wellness examination Z00.00 [facility] WALK IN [facility] [id number] [place] [address] 12153 -4635 Oct, Pain in left shoulder M25.512 [place] [address] 63885- 4786 Apr, Plantar fasciitis 728.71 [facility] [place] [id number] [place] [address] 01771- 3723 March, Fasciitis 729.4 and Calcaneal spur 726.73 [facility] [place] [address] [id number], [place] [address]- 9911 Feb, [facility] [place] [id number] [place] [address] 79727- 7580 Feb, [facility] [place] [address] [id number], [place] [address]- 6881 Jan, [facility] [place] [id number] [place] [address] 20758- 9650 Jan, [facility] [place] [id number] [place] [address] 72199- 3269 Jan, [facility] [place] [id number] [place] [address] 51344- 4776 Jan, [facility] [place] [address] [facility] [id number][place] [address]- 7730 May, [facility] [place] [address] [id number], [place] [address]- 4298 May, [facility] [place] [address] [id number], [place] [address]- 7608 March, [facility] [place] [address] [facility] [id number], [place] [address]- 7133 March, [facility] [place] [address] [facility] [id number] 8206 Feb, [facility] [place] [address] [facility] [id number] [place] [address] 052937- 2542 Feb, [facility] [place] [address] [facility] [id number], [place] [address]- 3408 Jan, [facility] [place] [address] [facility] [id number] [place] [address] 81609- 4389 Jan, [facility] [address] [id number] [place] [address]- 2161 Jan, [facility] [place] [facility] [address] [id number] [place] [address]- 3475 Jan, [facility] [place] [facility] [address] [facility] [id number] [place] [address]- 2101 Oct, [facility] [place] [facility] [address] [id number] [place] [address]- 0470 Oct, [facility] [place] [facility] [address] [id number] [place] [address]- 7317 Aug, [facility] [place] [facility] [address] [facility] [id number] [place] [address]- 7683 Jan, [facility] [place] [facility] [address] [facility] [id number] [place] [address]- 0743 Dec, [facility] [place] [facility] [address] [facility] [id number] [place] [address]- 5447 Dec, [facility] [place] [facility] [address] [facility] [id number] [place] [address]- 6636 Nov, [facility] [place] [facility] [address] [facility] [id number] [place] [address]- 9721 Nov, [facility] [place] [facility] [address] [id number], [place] [address]- 1229 Nov, [facility] [place] [facility] [address] [id number] [place] [address]- 4515 Oct, [facility] [place] [facility] [address] [id number] [place] [address]- 4102 Nov, [facility] [place] [facility] [address] [facility] [id number] [place] [address]- 0461 Oct, [facility] [place] [facility] [address] [facility] [id number] [place] [address]- 5974 Sep, [facility] [place] [facility] [address] [facility] [id number] [place] [address]- 8115 Sep, [facility] [address] [facility] [id number], [place] [address]- 0537 Sep, [facility] [address] [facility] [id number] [place] [address]- 5325 Oct, IMMUNIZATIONS No Known Immunizations SOCIAL HISTORY Never Assessed REASON FOR VISIT lab orders PLAN OF CARE Activity Details Pending Test CBC W/ AUTO DIFF (OUTSIDE LAB) Pending Test CMP VITAL SIGNS MEDICATIONS Unknown Medications RESULTS No Results PROCEDURES Procedure Date Ordered Result Body Site COMPREHEN METABOLIC PANEL May 18, 2018 INSTRUCTIONS MEDICATIONS ADMINISTERED No Known Medications MEDICAL (GENERAL) HISTORY Type Description Date Medical History HTN Medical History Unspecified arthropathy, site unspecified Medical History Other seborrheic keratosis
--- OUTSIDE RECORDS SUMMARY | 2018-09-20 15:38 | XMS REPORT ---
Author Author TIMMY OLEARY [facility] Address [address] [place] [address] Care Team Providers Care Oracle Fusion Middleware Developer Name Role Phone TIMMY OLEARY Unavailable PROBLEMS Type Condition ICD9-CM Code MCX52-IB Code Onset Dates Condition Status SNOMED Code Problem Psoriasis L40.9 Active 0327996 Problem Flexural eczema L20.82 Active 55293366 Problem Wellness examination Z00.00 Active 098941849 Problem Other chronic pain G89.29 Active 77681791 Problem Left shoulder pain M25.512 Active 12110641 ALLERGIES No Information ENCOUNTERS Encounter Location Date Diagnosis [place] [id number] [place] [address] 96215- 7840 May, Wellness examination Z00.00 [place] [id number] [place] [address] 51059- 9214 Apr, Elevated fasting glucose R73.01 and Wellness examination Z00.00 [place] [id number] [place] [address] 47512- 2474 Apr, Elevated fasting glucose R73.01 [place] [id number] [place] [address] 50367- 1039 Apr, [place] [id number] [place] [address] 40913- 1023 Apr, Psoriasis L40.9 [place] [id number] [place] [address] 91359- 5967 Apr, Psoriasis L40.9 [place] [id number] [place] [address] 42154- 7671 March, Psoriasis L40.9 [place] [id number] [place] [address] 71685- 3054 Feb, [facility] [place] [id number] [place] [address] 65656- 6729 Feb, [place] [address] 73785- 3316 Jan, Left shoulder pain M25.512 and Flexural eczema L20.82 [facility] WALK IN [facility] [address] 32290 -2189 Jan, Rash R21 [place] [address] 00853- 7094 Oct, Other chronic pain G89.29 and Pain in right shoulder M25.511 [place] [address] 88785- 9008 Apr, Plantar fasciitis of right foot M72.2 [place] [address] 11434- 2442 March, Plantar fasciitis M72.2 [place] [address] 38308- 3131 Jan, Impingement syndrome, shoulder, left M75.42 [place] [address] 11991- 3308 Dec, Impingement syndrome, shoulder, left M75.42 [place] [id number] [place] [address] 57846- 6786 Oct, Left shoulder pain M25.512 and Wellness examination Z00.00 [facility] WALK IN [facility] [id number] [place] [address] 46678 -8697 Oct, Pain in left shoulder M25.512 [place] [address] 78044- 2400 Apr, Plantar fasciitis 728.71 [place] [address] 25590- 6046 01 May, 2015 Fasciitis 729.4 and Calcaneal spur 726.73 [facility] [address] [id number] [place] [address]- 4856 14 Feb, 2015 [facility] [address] [id number] [place] [address]- 1386 Feb, [facility] [address] [id number] [place] [address]- 9351 Jan, [facility] [place] [facility] [address] [id number] [place] [address]- 1253 Jan, [facility] [address] [id number] [place] [address]- 3572 Jan, [facility] [address] [id number] [place] [address]- 0270 Jan, [facility] [address] [facility] [id number] [place] [address]- 3924 May, [facility] [address] [id number] [place] [address]- 7108 May, [facility] [address] [id number], [place] [address]- 0089 March, [facility] [address] [facility] [id number] [place] [address]- 1256 March, [facility] [address] [id number], [place] [address]- 3337 Feb, [facility] [place] [facility] [address] [id number], [place] [address]- 6087 Feb, [facility] [place] [facility] [address] [id number], [place] [address]- 8476 Jan, [facility] [place] [facility] [address] [id number], [place] [address]- 0411 Jan, [facility] [place] [facility] [address] [facility] [id number] [place] [address]- 5597 Jan, [facility] [place] [facility] [address] [id number] [place] [address]- 8588 Jan, [facility] [address] [id number] [place] [address]- 7743 Oct, [facility] [place] [facility] [address] [id number] [place] [address]- 9276 Oct, [facility] [address] [id number] [place] [address]- 1446 Aug, [facility] [place] [facility] [address] [id number] [place] [address]- 6674 Jan, [facility] [address] [id number] [place] [address]- 9476 Dec, [facility] [address] [id number] [place] [address]- 8726 Dec, [facility] [address] [id number] [place] [address]- 7385 Nov, [facility] [address] [id number] [place] [address]- 9931 Nov, [facility] [address] [id number] [place] [address]- 4468 Nov, [facility] [address] [facility] [id number] [place] [address] Oct, [facility] [address] [id number] [place] [address] Nov, [facility] [address] [id number] [place] [address] 18 Oct, 2009 [facility] [place] [facility] [address] [id number] [place] [address] Sep, [facility] [place] [facility] [address] [id number] [place] [address] Sep, [facility] [place] [facility] [address] [id number] [place] [address] Sep, [facility] [place] [address] [facility] [id number] [place] [address] Oct, IMMUNIZATIONS No Known Immunizations SOCIAL HISTORY Never Assessed REASON FOR VISIT rx resend PLAN OF CARE VITAL SIGNS MEDICATIONS Medication Instructions Dosage Frequency Start Date End Date Duration Status Albenza 200 mg Orally one time 2 tablets Feb, 1 dose Active RESULTS No Results PROCEDURES No Known procedures INSTRUCTIONS MEDICATIONS ADMINISTERED No Known Medications MEDICAL (GENERAL) HISTORY Type Description Date Medical History HTN Medical History Unspecified arthropathy, site unspecified Medical History Other seborrheic keratosis
--- OUTSIDE RECORDS SUMMARY | 2018-09-20 15:38 | XMS REPORT ---
Author Author KAMRON NATHAN Organization [facility] Address [address] [place] [address] Care Team Providers Care Doctor Of Naturopathic Medicine Name Role Phone KAMRON NATHAN Unavailable PROBLEMS Type Condition ICD9-CM Code DQR18-FD Code Onset Dates Condition Status SNOMED Code Problem Psoriasis L40.9 Active 4750774 Problem Flexural eczema L20.82 Active 11860194 Problem Wellness examination Z00.00 Active 070621150 Problem Other chronic pain G89.29 Active 83765162 Problem Left shoulder pain M25.512 Active 30485646 ALLERGIES Substance Reaction Event Type Date Status Beta-blockers (beta-adrenergic Blocking Agts) Depression Non Drug Allergy Jan, Active ENCOUNTERS Encounter Location Date Diagnosis [place] [id number] [id number] [place] [address]80- 4824 May, Wellness examination Z00.00 [place] [address] [address] Apr, Elevated fasting glucose R73.01 and Wellness examination Z00.00 [facility] [id number] [place] [address] 46746- 9586 Apr, Elevated fasting glucose R73.01 [place] [id number] [place] [address] 43893- 8919 Apr, [facility] [id number] [place] [address] 35765- 4295 Apr, Psoriasis L40.9 [facility] [address] 7[address]- 5526 Apr, Psoriasis L40.9 [facility] [id number] [place] [address] 54971- 8344 March, Psoriasis L40.9 [place] [id number] [place] [address] 93354- 8140 Feb, [facility] [address] [address]61- 0253 Feb, [facility] [id number] [place] [address] 60105- 9636 Jan, Left shoulder pain M25.512 and Flexural eczema L20.82 [facility] [address] [address] Jan, Rash R21 [place] [address] 91760- 8203 Oct, Other chronic pain G89.29 and Pain in right shoulder M25.511 [place] [address] 7[address]- 1990 Apr, Plantar fasciitis of right foot M72.2 [place] [address] 53397- 8476 March, Plantar fasciitis M72.2 [place] [address] 41617- 6535 Jan, Impingement syndrome, shoulder, left M75.42 [place] [id number] [place] [address] 43100- 5800 Dec, Impingement syndrome, shoulder, left M75.42 [place] [id number] [place] [address] 12818- 1334 Oct, Left shoulder pain M25.512 and Wellness examination Z00.00 [facility] [address] 24[address] -5928 Oct, Pain in left shoulder M25.512 [place] [address] 38513- 7743 Apr, Plantar fasciitis 728.71 [place] [address] [place] [address] 6060 March, Fasciitis 729.4 and Calcaneal spur 726.73 [facility] [address] [id number] [place] [address] 27[address] 14 Feb, 2015 [facility] [address] [facility] [id number] [place] [address] 1480 Feb, [facility] [address] [id number] [place] [address], [place] [address]- 4400 Jan, [facility] [address] [id number] [place] [address] 0812 Jan, [facility] [address] [facility] [id number] [place] [address]- 9971 Jan, [facility] [address] [place] [id number] [place] [address] 7304 Jan, [facility] [address] [id number] [address] 5658 May, [facility] [address] [facility] [id number] [place] [address] 3802 May, [facility] [address] [id number] [address] 3306 March, [facility] [address] [id number] [place] [address] 5386 March, [facility] [address] [facility] [id number], [place] [address] 2221 Feb, [facility] [address] [id number] [place] [address]- 5780 Feb, [facility] [address] [facility] [id number] [place] [address] Jan, [facility] [address] [facility] [id number], [place] [address] 6970 Jan, [facility] [address] [facility] [id number], [place] [address]- 4881 Jan, [facility] [address] [id number] [place] [address]- 9981 Jan, [facility] [place] [facility] [address] [id number] [place] [address] Oct, [facility] [address] [id number] [place] [address]- 9295 Oct, [facility] [place] [facility] [address] [id number] [place] [address]- 0090 Aug, [facility] [address] [id number] [place] [address]- 8272 Jan, [facility] [place] [facility] [address] [id number] [place] [address]- 0768 Dec, [facility] [address] [facility] [id number] [place] [address]- 2909 Dec, [facility] [place] [facility] [address] [id number] [place] [address]- 2999 Nov, [facility] [address] [facility] [id number] [place] [address]- 4452 Nov, [facility] [place] [facility] [address] [facility] [id number] [place] [address]- 3921 Nov, [facility] [address] [id number] [place] [address]- 2717 Oct, [facility] [place] [facility] [address] [id number] [place] [address]- 1037 Nov, [facility] [place] [facility] [address] [id number] [place] [address]- 7872 18 Oct, 2009 [facility] [place] [facility] [address] [id number] [place] [address]- 2871 10 Sep, 2009 [facility] [place] [facility] [address] [facility] [id number] [place] [address]- 9646 10 Sep, 2009 [facility] [place] [facility] [address] [facility] [id number] [place] [address]- 7537 Sep, [facility] [address] [facility] [id number] [place] [address]- 9055 Oct, IMMUNIZATIONS No Known Immunizations SOCIAL HISTORY Never Assessed REASON FOR VISIT Pain management (chronic)- Came to walk in care last week with a rash, still has the rash- Jean-Pierre Castro rn PLAN OF CARE VITAL SIGNS Height 63 in 2018-02-22 Weight 188 lbs 2018-02-22 Temperature 98.9 degrees Fahrenheit 2018-02-22 Heart Rate 78 bpm 2018-02-22 Respiratory Rate 18 2018-02-22 BMI 33.30 kg/m2 2018-02-22 Blood pressure systolic 124 mmHg 2018-02-22 Blood pressure diastolic 88 mmHg 2018-02-22 MEDICATIONS Medication Instructions Dosage Frequency Start Date End Date Duration Status PredniSONE 20 mg Orally Once a day 2 tablets 24h Jan, Feb, 05 days Active Ibuprofen 200 MG Orally at bedtime as needed 2 tablets Active Triamcinolone Acetonide 0.1 % Externally Twice a day 1 application to affected area 12h Jan, Active Naproxen 500 mg Orally every 12 hrs 1 tablet with food or milk as needed 12h Jan, Active RESULTS No Results PROCEDURES No Known procedures INSTRUCTIONS MEDICATIONS ADMINISTERED No Known Medications MEDICAL (GENERAL) HISTORY Type Description Date Medical History HTN Medical History Unspecified arthropathy, site unspecified Medical History Other seborrheic keratosis
--- OUTSIDE RECORDS SUMMARY | 2018-09-20 15:38 | XMS REPORT ---
Author Author NILDA OROZCO Organization [employer] Address Unknown Phone Unavailable Care Team Providers Care Administrative Assistant Office Manager Name Role Phone NILDA OROZCO CP Unavailable Allergies, Adverse Reactions, Alerts Substance Reaction Event Type Beta-blockers (beta-adrenergic Blocking Agts) Depression Non Drug Allergy Problems Problem Type Condition Code Onset Dates Condition Status Problem Wellness examination Z00.00 Active Assessment Left shoulder pain M25.512 Active Problem Left shoulder pain M25.512 Active Assessment Wellness examination Z00.00 Active Medications Medication Code System Code Instructions Start Date End Date Status Dosage PredniSONE [facility] [address]-13 20 MG Orally Once a day Nov 25, 2015 Nov 30, 2015 2 tablets Flexeril NDC 0 not defined Ibuprofen [facility] [address]-26 800 MG Orally 2 times a day Dec 09, 2015 1 tablet Procedures Procedure Coding System Code Date Office Visit, Est Pt., Level 3 CPT-4 69656 Nov 25, 2015 Vital Signs Date/Time: Nov 25, 2015 Temperature 97.0 F Weight 201.2 lbs Height 63 in BMI 35.64 Index Blood Pressure Diastolic 80 mmHg Blood Pressure Systolic 124 mmHg Cardiac Monitoring Heart Rate 68 bpm Results No Known Results Summary Purpose [employer] Submission
--- OUTSIDE RECORDS SUMMARY | 2018-09-20 15:38 | XMS REPORT ---
Author Author TIMMY OLEARY [facility] Address [address] [place] [address] Care Team Providers Care Solution Maker Name Role Phone TIMMY OLEARY Unavailable PROBLEMS Type Condition ICD9-CM Code LCP59-EJ Code Onset Dates Condition Status SNOMED Code Problem Psoriasis L40.9 Active 2010484 Problem Flexural eczema L20.82 Active 81349620 Problem Wellness examination Z00.00 Active 996549734 Problem Other chronic pain G89.29 Active 15839099 Problem Left shoulder pain M25.512 Active 38109098 ALLERGIES No Information ENCOUNTERS Encounter Location Date Diagnosis [place] [id number] [place] [address] 64489- 9968 May, Wellness examination Z00.00 [place] [id number] [place] [address] 25403- 7119 Apr, Elevated fasting glucose R73.01 and Wellness examination Z00.00 [place] [id number] [place] [address] 73345- 3534 Apr, Elevated fasting glucose R73.01 [place] [id number] [place] [address] 87009- 9438 Apr, [place] [address] [id number] [place] [address] 39772- 4298 Apr, Psoriasis L40.9 [place] [id number] [place] [address] 79656- 5680 Apr, Psoriasis L40.9 [place] [id number] [place] [address] 92518- 1081 March, Psoriasis L40.9 [place] [id number] [place] [address] 57605- 8781 Feb, [facility] [id number] [place] [address] 38493- 3120 Feb, [place] [address] [address]- 2193 Jan, Left shoulder pain M25.512 and Flexural eczema L20.82 [facility] [address] [address] Jan, Rash R21 [place] [address] 04449- 3959 Oct, Other chronic pain G89.29 and Pain in right shoulder M25.511 [place] [address] 58569- 2271 Apr, Plantar fasciitis of right foot M72.2 [place] [address] 72355- 0764 March, Plantar fasciitis M72.2 [place] [address] 23892- 5382 Jan, Impingement syndrome, shoulder, left M75.42 [place] [address] 67828- 0321 Dec, Impingement syndrome, shoulder, left M75.42 [place] [id number] [place] [address] 65289- 7272 Oct, Left shoulder pain M25.512 and Wellness examination Z00.00 [facility] IN [facility] [id number] [place] [address] 21118 -5007 Oct, Pain in left shoulder M25.512 [place] [address] 40730- 5319 Apr, Plantar fasciitis 728.71 [place] [address] 59295- 9514 01 May, 2015 Fasciitis 729.4 and Calcaneal spur 726.73 [facility] [address] [id number] [place] [address]- 7846 14 Feb, 2015 [facility] [address] [id number] [place] [address]- 5186 Feb, [facility] [address] [id number] [place] [address]- 1239 Jan, [facility] [place] [facility] [address] [id number] [place] [address]- 0419 Jan, [facility] [address] [id number] [place] [address]- 3777 Jan, [facility] [address] [id number] [place] [address]- 5234 Jan, [facility] [address] [facility] [id number] [place] [address]- 4915 May, [facility] [address] [id number] [place] [address]- 8356 May, [facility] [address] [id number], [place] [address]- 4830 March, [facility] [address] [facility] [id number] [place] [address]- 6925 March, [facility] [address] [id number], [place] [address]- 1145 Feb, [facility] [place] [facility] [address] [id number], [place] [address]- 6539 Feb, [facility] [place] [facility] [address] [id number], [place] [address]- 1174 Jan, [facility] [place] [facility] [address] [id number], [place] [address]- 0762 Jan, [facility] [place] [facility] [address] [facility] [id number] [place] [address]- 1771 Jan, [facility] [place] [facility] [address] [id number] [place] [address]- 8890 Jan, [facility] [address] [id number] [place] [address]- 9529 Oct, [facility] [place] [facility] [address] [id number] [place] [address]- 6136 Oct, [facility] [address] [id number] [place] [address]- 8056 Aug, [facility] [place] [facility] [address] [id number] [place] [address]- 2245 Jan, [facility] [address] [id number] [place] [address]- 0686 Dec, [facility] [address] [id number] [place] [address]- 1406 Dec, [facility] [address] [id number] [place] [address]- 6561 Nov, [facility] [address] [id number] [place] [address]- 5432 Nov, [facility] [address] [id number] [place] [address]- 5328 Nov, [facility] [address] [facility] [id number] [place] [address]- 0509 Oct, [facility] [address] [id number] [place] [address]- 8880 Nov, [facility] [address] [id number] [place] [address]- 9000 18 Oct, 2009 [facility] [place] [facility] [address] [id number] [place] [address]- 1838 Sep, [facility] [place] [facility] [address] [id number] [place] [address]- 2546 Sep, [facility] [place] [facility] [address] [id number] [place] [address]- 0196 Sep, [facility] [address] [facility] [id number] [place] [address]- 7734 Oct, IMMUNIZATIONS No Known Immunizations SOCIAL HISTORY Never Assessed REASON FOR VISIT med order PLAN OF CARE VITAL SIGNS MEDICATIONS Medication Instructions Dosage Frequency Start Date End Date Duration Status Albendazole 200 mg Orally one time 2 tablets Feb, 1 dose Active RESULTS No Results PROCEDURES No Known procedures INSTRUCTIONS MEDICATIONS ADMINISTERED No Known Medications MEDICAL (GENERAL) HISTORY Type Description Date Medical History HTN Medical History Unspecified arthropathy, site unspecified Medical History Other seborrheic keratosis
--- OUTSIDE RECORDS SUMMARY | 2018-09-20 15:38 | XMS REPORT ---
Author Author KEMAR LEON Organization [employer] Address Unknown Phone Unavailable Care Team Providers Care Application Support Manager Name Role Phone KEMAR LEON CP Unavailable Allergies, Adverse Reactions, Alerts Substance Reaction Event Type Beta-blockers (beta-adrenergic Blocking Agts) Depression Non Drug Allergy Problems Problem Type Condition Code Onset Dates Condition Status Problem Wellness examination Z00.00 Active Assessment Pain in left shoulder M25.512 Active Problem Left shoulder pain M25.512 Active Medications Medication Code System Code Instructions Start Date End Date Status Dosage Ibuprofen NDC [address]-59 800 MG Orally Three times a day 1 tablet Flexeril NDC 0 not defined Procedures Procedure Coding System Code Date Office Visit, Est Pt., Level 3 CPT-4 25339 Nov 25, 2015 Vital Signs Date/Time: Nov 25, 2015 Temperature 97.5 F Weight 201.2 lbs Height 63 in BMI 35.64 Index Blood Pressure Diastolic 86 mmHg Blood Pressure Systolic 138 mmHg Cardiac Monitoring Heart Rate 64 bpm Results No Known Results Summary Purpose [employer] Submission
--- OUTSIDE RECORDS SUMMARY | 2018-09-20 15:39 | XMS REPORT ---
Author Author KAMRON NATHAN Organization [facility] [place] Address [address] [place] [address] Care Team Providers Care Hospitality Team Member Name Role Phone KAMRON NATHAN Unavailable PROBLEMS Type Condition ICD9-CM Code [id number] Code Onset Dates Condition Status SNOMED Code Problem Psoriasis L40.9 Active 4358407 Problem Flexural eczema L20.82 Active 20174063 Problem Wellness examination Z00.00 Active 607865055 Problem Other chronic pain G89.29 Active 19009710 Problem Left shoulder pain M25.512 Active [id number] ALLERGIES No Information ENCOUNTERS Encounter Location Date Diagnosis [facility] [place] [address] [address] March, Psoriasis L40.9 [facility] [place] [address] [address] Feb, [facility] [place] [address] [address] Feb, [facility] [place] [address] [address] Jan, Left shoulder pain M25.512 and Flexural eczema L20.82 [facility] [address] [address] Jan, Rash R21 [facility] [place] [address] [address] Oct, Other chronic pain G89.29 and Pain in right shoulder M25.511 [facility] [place] [address] [address] Apr, Plantar fasciitis of right foot M72.2 [facility] [place] [address] [address] March, Plantar fasciitis M72.2 [facility] [place] [id number] [place] [address] Jan, Impingement syndrome, shoulder, left M75.42 [facility] [place] [id number] [place] [address] Dec, Impingement syndrome, shoulder, left M75.42 [facility] [place] [id number] [place] [address] Oct, Left shoulder pain M25.512 and Wellness examination Z00.00 [facility] [id number] [place] [address] Oct, Pain in left shoulder M25.512 [facility] [place] [id number] [place] [address] Apr, Plantar fasciitis 728.71 [facility] [place] [id number] [place] [address] March, Fasciitis 729.4 and Calcaneal spur 726.73 [facility] [place] [id number] [place] [address] Feb, [facility] [place] [id number] [place] [address] Feb, [facility] [place] [id number] [place] [address] Jan, [facility] [place] [id number] [place] [address] Jan, [facility] [place] [id number] [place] [address] Jan, [facility] [place] [id number] [place] [address] 148564[address] Jan, [facility] [place] [id number] [place] [address] May, [facility] [place] [facility] [address] [id number] [place] [address] May, [facility] [place] [facility] [address] [id number] [place] [address] March, [facility] [place] [facility] [address] [id number] [place] [address] March, [facility] [place] [facility] [address] [id number] [place] [address] Feb, [facility] [place] [facility] [address] [id number] [place] [address] Feb, [facility] [place] [facility] [address] [id number] [place] [address] Jan, [facility] [place] [facility] [address] [id number] [place] [address] Jan, [facility] [place] [facility] [address] [id number] [place] [address] Jan, [facility] [place] [facility] [address] [id number] [place] [address] Jan, [facility] [place] [facility] [address] [id number] [place] [address] Oct, [facility] [place] [facility] [address] [id number] [place] [address] Oct, [facility] [place] [facility] [address] [id number] [address] Aug, [facility] [place] [facility] [address] [id number] [place] [address] Jan, [facility] [place] [facility] [address] [id number] [place] [address] Dec, [facility] [place] [facility] [address] [id number] [place] [address] Dec, [facility] [place] [facility] [address] [id number] [address] Nov, [facility] [place] [id number] [address] Nov, [facility] [place] [id number] [address] Nov, [facility] [place] [id number] [address] Oct, [facility] [place] [id number] [address] Nov, [facility] [place] [id number] [place] [address] Oct, [facility] [place] [id number] [address] Sep, [facility] [place] [id number] [address] Sep, [facility] [place] [id number] [address] Sep, [facility] [place] [id number] [address] Oct, IMMUNIZATIONS No Known Immunizations SOCIAL HISTORY Never Assessed REASON FOR VISIT Establish Care - MATILDE Dacosta PLAN OF CARE VITAL SIGNS Height 63 in 2017-11-04 Weight 189 lbs 2017-11-04 Temperature 98.3 degrees Fahrenheit 2017-11-04 Heart Rate 82 bpm 2017-11-04 Respiratory Rate 20 2017-11-04 BMI 33.48 kg/m2 2017-11-04 Blood pressure systolic 130 mmHg 2017-11-04 Blood pressure diastolic 82 mmHg 2017-11-04 MEDICATIONS Medication Instructions Dosage Frequency Start Date End Date Duration Status Ibuprofen 200 MG Orally at bedtime as needed 2 tablets Active Flexeril Unknown RESULTS Name Result Date Reference Range Xray : Shoulder, Right 2 view (IN HOUSE) 2017-11-04 PROCEDURES Procedure Date Ordered Result Body Site JOINT INJECTION-LARGE JOINT 2017-11-04 N/A DRAIN/INJECT, JOINT/BURSA Nov 04, 2017 X-RAY EXAM OF SHOULDER Nov 04, 2017 INSTRUCTIONS MEDICATIONS ADMINISTERED No Known Medications MEDICAL (GENERAL) HISTORY Type Description Date Medical History HTN Medical History Unspecified arthropathy, site unspecified Medical History Other seborrheic keratosis
--- OUTSIDE RECORDS SUMMARY | 2018-09-20 15:39 | XMS REPORT | Continuity of Care Document ---
Author Author [facility] Organization [facility] Address Unknown Phone Unavailable Allergies Active Description Code Type Severity Reaction Onset Reported/Identified Relationship to Patient Clinical Status Yes NKANo Known Allergies NKA Miscellaneous Allergy Unknown N/A 07/18/2007 Yes amoxicillin [id number] Drug Allergy Unknown N/A 11/06/2015 Yes codeine [id number] Drug Allergy Unknown N/A 11/06/2015 Yes morphine [id number] Drug Allergy Unknown N/A 11/06/2015 Yes oxycodone [id number] Drug Allergy Unknown N/A 11/06/2015 Yes Penicillins [id number] Drug Allergy Unknown N/A 11/06/2015 Medications There is no data. Problems Date Dx Coded Attending Type Code Diagnosis Diagnosed By 02/11/2011 Ot 276.50 VOLUME DEPLETION, UNSPECIFIED 02/11/2011 Ot 558.9 NONINF GASTROENTERIT NEC 02/11/2011 Ot 787.03 VOMITING ALONE 11/06/2015 OLESYA GIPSON MD Ot F17.210 NICOTINE DEPENDENCE, CIGARETTES, UNCOMPL 11/06/2015 OLESYA GIPSON MD Ot M54.2 CERVICALGIA 11/06/2015 OLESYA GIPSON MD Ot M62.838 OTHER MUSCLE SPASM 10/30/2016 JOSE MONTGOMERY DO Ot F17.210 NICOTINE DEPENDENCE, CIGARETTES, UNCOMPL 10/30/2016 JOSE MONTGOMERY DO Ot I10 ESSENTIAL (PRIMARY) HYPERTENSION 10/30/2016 JOSE MONTGOMERY DO Ot M25.511 PAIN IN RIGHT SHOULDER 10/30/2016 JOSE MONTGOMERY DO Ot M25.512 PAIN IN LEFT SHOULDER 10/30/2016 JOSE MONTGOMERY DO Ot R07.9 CHEST PAIN, UNSPECIFIED 10/30/2016 JOSE MONTGOMERY DO Ot R73.9 HYPERGLYCEMIA, UNSPECIFIED 10/30/2016 JOSE MONTGOMERY DO Ot F17.210 NICOTINE DEPENDENCE, CIGARETTES, UNCOMPL 10/30/2016 JOSE MONTGOMERY DO Ot I10 ESSENTIAL (PRIMARY) HYPERTENSION 10/30/2016 JOSE MONTGOMERY DO Ot M25.511 PAIN IN RIGHT SHOULDER 10/30/2016 JOSE MONTGOMERY DO Ot M25.512 PAIN IN LEFT SHOULDER 10/30/2016 JOSE MONTGOMERY DO Ot R07.9 CHEST PAIN, UNSPECIFIED 10/30/2016 JOSE MONTGOMERY DO Ot R73.9 HYPERGLYCEMIA, UNSPECIFIED Procedures There is no data. Results Test Result Range Complete blood count (CBC) with automated white blood cell (WBC) differential - 10/29/16 21:22 Blood leukocytes automated count (number/volume) 7.7 10*3/uL 4.3-11.0 Blood erythrocytes automated count (number/volume) 4.77 10*6/uL 4.35-5.85 Venous blood hemoglobin measurement (mass/volume) 13.7 g/dL 11.5-16.0 Blood hematocrit (volume fraction) 41 % 35-52 Automated erythrocyte mean corpuscular volume 86 [foz_us] 80-99 Automated erythrocyte mean corpuscular hemoglobin (mass per erythrocyte) 29 pg 25-34 Automated erythrocyte mean corpuscular hemoglobin concentration measurement ( mass/volume) 33 g/dL 32-36 Automated erythrocyte distribution width ratio 14.8 % 10.0-14.5 Automated blood platelet count (count/volume) 283 10*3/uL 130-400 Automated blood platelet mean volume measurement 10.3 [foz_us] 7.4-10.4 Automated blood neutrophils/100 leukocytes 56 % 42-75 Automated blood lymphocytes/100 leukocytes 34 % 12-44 Blood monocytes/100 leukocytes 8 % 0-12 Automated blood eosinophils/100 leukocytes 2 % 0-10 Automated blood basophils/100 leukocytes 0 % 0-10 Blood neutrophils automated count (number/volume) 4.3 10*3 1.8-7.8 Blood lymphocytes automated count (number/volume) 2.6 10*3 1.0-4.0 Blood monocytes automated count (number/volume) 0.6 10*3 0.0-1.0 Automated eosinophil count 0.2 10*3/uL 0.0-0.3 Automated blood basophil count (count/volume) 0.0 10*3/uL 0.0-0.1 PT panel in platelet poor plasma by coagulation assay - 10/29/16 21:22 Prothrombin time (PT) in platelet poor plasma by coagulation assay 11.8 s 12.2-14.7 INR in platelet poor plasma or blood by coagulation assay 0.9 0.8-1.4 Activated partial thromboplastin time (aPTT) in platelet poor plasma bycoagulation assay - 10/29/16 21:22 Activated partial thromboplastin time (aPTT) in platelet poor plasma bycoagulation assay 28 s 24-35 Comprehensive metabolic panel - 10/29/16 21:22 Serum or plasma sodium measurement (moles/volume) 142 mmol/L 135-145 Serum or plasma potassium measurement (moles/volume) 3.5 mmol/L 3.6-5.0 Serum or plasma chloride measurement (moles/volume) 110 mmol/L 98-107 Carbon dioxide 21 mmol/L 21-32 Serum or plasma anion gap determination (moles/volume) 11 mmol/L 5-14 Serum or plasma urea nitrogen measurement (mass/volume) 16 mg/dL 7-18 Serum or plasma creatinine measurement (mass/volume) 0.62 mg/dL 0.60-1.30 Serum or plasma urea nitrogen/creatinine mass ratio 26 NRG Serum or plasma creatinine measurement with calculation of estimated glomerular filtration rate > NRG Serum or plasma glucose measurement (mass/volume) 155 mg/dL 70-105 Serum or plasma calcium measurement (mass/volume) 9.0 mg/dL 8.5-10.1 Serum or plasma total bilirubin measurement (mass/volume) 0.2 mg/dL 0.1-1.0 Serum or plasma alkaline phosphatase measurement (enzymatic activity/volume) 95 U/L 40-136 Serum or plasma aspartate aminotransferase measurement (enzymatic activity/ volume) 17 U/L 5-34 Serum or plasma alanine aminotransferase measurement (enzymatic activity/volume ) 14 U/L 0-55 Serum or plasma protein measurement (mass/volume) 6.9 g/dL 6.4-8.2 Serum or plasma albumin measurement (mass/volume) 3.8 g/dL 3.2-4.5 Magnesium - 10/29/16 21:22 Magnesium 2.2 mg/dL 1.8-2.4 Serum or plasma troponin i.cardiac measurement (mass/volume) - 10/29/16 21:22 Serum or plasma troponin i.cardiac measurement (mass/volume) < ng/ mL <0.30 Myoglobin, serum - 10/29/16 21:22 Myoglobin, serum 28.6 ng/mL 10.0-92.0 Complete blood count (CBC) with automated white blood cell (WBC) differential - 10/30/16 03:28 Blood leukocytes automated count (number/volume) 6.9 10*3/uL 4.3-11.0 Blood erythrocytes automated count (number/volume) 4.69 10*6/uL 4.35-5.85 Venous blood hemoglobin measurement (mass/volume) 13.0 g/dL 11.5-16.0 Blood hematocrit (volume fraction) 40 % 35-52 Automated erythrocyte mean corpuscular volume 86 [foz_us] 80-99 Automated erythrocyte mean corpuscular hemoglobin (mass per erythrocyte) 28 pg 25-34 Automated erythrocyte mean corpuscular hemoglobin concentration measurement ( mass/volume) 32 g/dL 32-36 Automated erythrocyte distribution width ratio 14.8 % 10.0-14.5 Automated blood platelet count (count/volume) 276 10*3/uL 130-400 Automated blood platelet mean volume measurement 10.7 [foz_us] 7.4-10.4 Automated blood neutrophils/100 leukocytes 42 % 42-75 Automated blood lymphocytes/100 leukocytes 45 % 12-44 Blood monocytes/100 leukocytes 9 % 0-12 Automated blood eosinophils/100 leukocytes 3 % 0-10 Automated blood basophils/100 leukocytes 0 % 0-10 Blood neutrophils automated count (number/volume) 2.9 10*3 1.8-7.8 Blood lymphocytes automated count (number/volume) 3.1 10*3 1.0-4.0 Blood monocytes automated count (number/volume) 0.6 10*3 0.0-1.0 Automated eosinophil count 0.2 10*3/uL 0.0-0.3 Automated blood basophil count (count/volume) 0.0 10*3/uL 0.0-0.1 Lipid 1996 panel - 10/30/16 03:28 Serum or plasma triglyceride measurement (mass/volume) 192 mg/dL <150 Serum or plasma cholesterol measurement (mass/volume) 210 mg/dL < 200 Serum or plasma cholesterol in HDL measurement (mass/volume) 44 mg/ dL 40-60 Cholesterol in LDL [mass/volume] in serum or plasma by direct assay 144 mg/dL 1-129 Serum or plasma cholesterol in VLDL measurement (mass/volume) 38 mg/ dL 5-40 Comprehensive metabolic panel - 10/30/16 03:28 Serum or plasma sodium measurement (moles/volume) 141 mmol/L 135-145 Serum or plasma potassium measurement (moles/volume) 3.2 mmol/L 3.6-5.0 Serum or plasma chloride measurement (moles/volume) 110 mmol/L 98-107 Carbon dioxide 21 mmol/L 21-32 Serum or plasma anion gap determination (moles/volume) 10 mmol/L 5-14 Serum or plasma urea nitrogen measurement (mass/volume) 18 mg/dL 7-18 Serum or plasma creatinine measurement (mass/volume) 0.65 mg/dL 0.60-1.30 Serum or plasma urea nitrogen/creatinine mass ratio 28 NRG Serum or plasma creatinine measurement with calculation of estimated glomerular filtration rate > NRG Serum or plasma glucose measurement (mass/volume) 148 mg/dL 70-105 Serum or plasma calcium measurement (mass/volume) 8.6 mg/dL 8.5-10.1 Serum or plasma total bilirubin measurement (mass/volume) 0.3 mg/dL 0.1-1.0 Serum or plasma alkaline phosphatase measurement (enzymatic activity/volume) 94 U/L 40-136 Serum or plasma aspartate aminotransferase measurement (enzymatic activity/ volume) 14 U/L 5-34 Serum or plasma alanine aminotransferase measurement (enzymatic activity/volume ) 13 U/L 0-55 Serum or plasma protein measurement (mass/volume) 6.2 g/dL 6.4-8.2 Serum or plasma albumin measurement (mass/volume) 3.5 g/dL 3.2-4.5 Serum or plasma troponin i.cardiac measurement (mass/volume) - 10/30/16 03:28 Serum or plasma troponin i.cardiac measurement (mass/volume) < ng/ mL <0.30 Hemoglobin A1c - 10/30/16 03:28 Hemoglobin A1c 5.7 % 4.5-6.2 DIFFERENTIAL, MANUAL - 05/18/18 13:38 ABSOLUTE NEUTROPHILS 3283 cells/uL 5236-1556 ABSOLUTE MONOCYTES 332 cells/uL 200-950 ABSOLUTE EOSINOPHILS 65 cells/uL 15-500 ABSOLUTE BASOPHILS 0 cells/uL 0-200 NEUTROPHILS 50.5 % NRG LYMPHOCYTES 43.4 % NRG MONOCYTES 5.1 % NRG EOSINOPHILS 1.0 % NRG BASOPHILS 0 % NRG ABSOLUTE LYMPHOCYTES 2821 cells/uL 850-3900 PLATELET ESTIMATION ADEQUATE ADEQUATE LIPID PANEL - 06/19/18 09:41 CHOLESTEROL, TOTAL 221 mg/dL <200 HDL CHOLESTEROL 54 mg/dL >50 TRIGLYCERIDES 153 mg/dL <150 LDL-CHOLESTEROL 139 mg/dL (calc) NRG CHOL/HDLC RATIO 4.1 (calc) <5.0 NON HDL CHOLESTEROL 167 mg/dL (calc) <130 Encounters ACCT No. Visit Date/Time Discharge Status Pt. Type Provider Facility Loc./Unit Complaint [id number] 10/29/2016 23:37:00 10/30/2016 09:30:00 DIS Inpatient JOSE MONTGOMERY DO [facility] ICU CHEST PAIN [id number] 11/06/2015 14:29:00 11/06/2015 16:39:00 DIS Emergency OLESYA GIPSON MD [facility] ER LEFT SHOULDER/BACK PAIN [id number] 02/10/2011 22:36:00 Document Registration [id number] 06/19/2018 09:40:00 06/19/2018 23:59:59 [facility] Outpatient ALFREDO QUINTANA [facility] [id number] 06/19/2018 09:40:00 Document Registration [id number] 05/18/2018 13:20:00 Document Registration
[2018-09-20] MEDS ORDERED: ASPIRIN 81 MG CHEW (CHILDREN'S ASA) ONE (15:40)
[2018-09-20] MEDS ORDERED: ASPIRIN 81 MG CHEW (CHILDREN'S ASA) PO ONE (15:45)
[2018-09-20] MEDS ORDERED: NITROGLYCERIN 0.4 MG SL TABS BTL 25'S SL PRN (15:45)
[2018-09-20 15:48] LABS: BASOPHILS % (AUTO) 0 % (0-10); EOSINOPHILS # (AUTO) 0.1 10^3/uL (0.0-0.3); EOSINOPHILS % (AUTO) 2 % (0-10); HEMATOCRIT 42 % (35-52); HEMOGLOBIN 13.9 G/DL (11.5-16.0); LYMPHOCYTES # (AUTO) 2.3 X 10^3 (1.0-4.0); LYMPHOCYTES % (AUTO) 29 % (12-44); MEAN CORPUSCULAR HEMOGLOBIN 29 PG (25-34); MEAN CORPUSCULAR HGB CONC 33 G/DL (32-36); MEAN CORPUSCULAR VOLUME 87 FL (80-99); MEAN PLATELET VOLUME 10.1 FL (7.4-10.4); MONOCYTES # (AUTO) 0.9 X 10^3 (0.0-1.0); MONOCYTES % (AUTO) 12 % (0-12); NEUTROPHILS # (AUTO) 4.4 X 10^3 (1.8-7.8); NEUTROPHILS % (AUTO) 57 % (42-75); PLATELET COUNT 292 10^3/uL (130-400); RED BLOOD COUNT 4.81 10^6/uL (4.35-5.85); RED CELL DISTRIBUTION WIDTH 14.4 % (10.0-14.5); WHITE BLOOD COUNT 7.7 10^3/uL (4.3-11.0)
--- NOTE | 2018-09-20 15:50 | ED Chest Pain ---
General Chief Complaint: Chest Pain Stated Complaint: LIGHTHEADED,CP,L ARM PAIN Nursing Triage Note: PT PRESENTS TO ED WITH COMPLAINTS OF L SIDED CP, HYPERTENSION, AND FAINTNESS STARTING AROUND 1500 TODAY AFTER MOPPING THE FLOOR. Nursing Sepsis Screen: No Definite Risk Source: patient Exam Limitations: no limitations History of Present Illness Date Seen by Provider: Sep 20, 2018 Time Seen by Provider: 15:47 Initial Comments To ER per private vehicle with reports of left-sided chest pain and high blood pressure and faintness that began around 3 PM today while mopping the floor. Chest pain was described as sharp. The left anterior lateral chest and it is worsened by movement of the left arm and tender to palpation. She had a clean heart catheterization in 2004, she does follow with Dr. Rhoades for history of SVT. Timing/Duration: 1/2 hour Severity/Quality: moderate Location: central Activities at Onset: none ASA po RAILROAD CAR LETTERER: No NTG SL RAILROAD CAR LETTERER: No Associated Symptoms: No nausea/vomiting, No shortness of breath Allergies and Home Medications Allergies Coded Allergies: NKANo Known Allergies (Verified Allergy, Unknown, 07/18/07) Penicillins (Verified Allergy, Unknown, 11/06/15) amoxicillin (Verified Allergy, Unknown, 11/06/15) codeine (Verified Allergy, Unknown, 11/06/15) morphine (Verified Allergy, Unknown, 11/06/15) oxycodone (Verified Allergy, Unknown, 11/06/15) Home Medications Ibuprofen 600 Mg Tablet, 600 MG PO TID PRN for PAIN Prescribed by: OLESYA GIPSON on 11/06/15 1636 Patient Home Medication List Home Medication List Reviewed: Yes Review of Systems Review of Systems Constitutional: see HPI EENTM: No Symptoms Reported Respiratory: No Symptoms Reported Cardiovascular: See HPI, Chest Pain, Lightheadedness Gastrointestinal: No Symptoms Reported Genitourinary: No Symptoms Reported Musculoskeletal: no symptoms reported Skin: no symptoms reported Psychiatric/Neurological: No Symptoms Reported Endocrine: No Symptoms Reported Past Ymzccwz-Txqgjv-Klfliv Hx Patient Social History Alcohol Use: Denies Use Recreational Drug Use: No Type Used: Cigarettes Recent Foreign Travel: No Contact w/Someone Who Travel: No Recent Infectious Disease Expo: No Recent Hopitalizations: Yes Physical Abuse: No Sexual Abuse: No Mistreated: No Fear: No Past Medical History Surgeries: Yes (HEART CATH) Respiratory: No Currently Using CPAP: No Currently Using BIPAP: No Cardiac: Yes (tachycardia) Hypertension Neurological: No Reproductive Disorders: No Genitourinary: No Gastrointestinal: No Musculoskeletal: No Endocrine: No Cancer: No Psychosocial: No Integumentary: Yes Psoriasis Blood Disorders: No Family Medical History Cardiovascular disease 19 FATHER (cva) G8 BROTHER (htn/cva) Diabetes mellitus 19 MOTHER G8 BROTHER Respiratory disorder G8 BROTHER Seizure disorder G8 SISTER CAD Under 55 Years Old Physical Exam Vital Signs Vital Signs - First Documented 09/20/18 15:38 Temp 97.3 Pulse 88 Resp 20 B/P (MAP) 149/71 (97) Pulse Ox 95 O2 Delivery Room Air Capillary Refill : Less Than 3 Seconds Height, Weight, BMI Height: 5'4.00" Weight: 200lbs. 8.0oz. 90.351842rl; 32.5 BMI Method:Stated General Appearance: No Apparent Distress, WD/WN HEENT: PERRL/EOMI, TMs Normal, Other (Poor dentition) Respiratory: No Accessory Muscle Use, No Respiratory Distress, Other (left superior anterior chest wall at about the third rib location lateral to the midclavicular line is tender to palpation) Cardiovascular: Regular Rate, Rhythm, Normal Peripheral Pulses Gastrointestinal: Normal Bowel Sounds, Non Tender, Soft Extremity: Normal Capillary Refill, Normal Inspection Neurologic/Psychiatric: Alert, Oriented x3, No Motor/Sensory Deficits Skin: Normal Color, Warm/Dry Progress/Results/Core Measures Results/Orders Lab Results Laboratory Tests Test 09/20/18 15:40 09/20/18 18:14 Range/Units White Blood Count 7.7 4.3-11.0 10^3/uL Red Blood Count 4.81 4.35-5.85 10^6/uL Hemoglobin 13.9 11.5-16.0 G/DL Hematocrit 42 35-52 % Mean Corpuscular Volume 87 80-99 FL Mean Corpuscular Hemoglobin 29 25-34 PG Mean Corpuscular Hemoglobin Concent 33 32-36 G/DL Red Cell Distribution Width 14.4 10.0-14.5 % Platelet Count 292 130-400 10^3/uL Mean Platelet Volume 10.1 7.4-10.4 FL Neutrophils (%) (Auto) 57 42-75 % Lymphocytes (%) (Auto) 29 12-44 % Monocytes (%) (Auto) 12 0-12 % Eosinophils (%) (Auto) 2 0-10 % Basophils (%) (Auto) 0 0-10 % Neutrophils # (Auto) 4.4 1.8-7.8 X 10^3 Lymphocytes # (Auto) 2.3 1.0-4.0 X 10^3 Monocytes # (Auto) 0.9 0.0-1.0 X 10^3 Eosinophils # (Auto) 0.1 0.0-0.3 10^3/uL Basophils # (Auto) 0.0 0.0-0.1 10^3/uL Prothrombin Time 12.6 12.2-14.7 SEC INR Comment 1.0 0.8-1.4 Activated Partial Thromboplast Time 28 24-35 SEC D-Dimer 0.50 H 0.00-0.49 UG/ML Sodium Level 141 135-145 MMOL/L Potassium Level 3.7 3.6-5.0 MMOL/L Chloride Level 108 H 98-107 MMOL/L Carbon Dioxide Level 21 21-32 MMOL/L Anion Gap 12 5-14 MMOL/L Blood Urea Nitrogen 15 7-18 MG/DL Creatinine 0.66 0.60-1.30 MG/DL Estimat Glomerular Filtration Rate > 60 BUN/Creatinine Ratio 23 Glucose Level 111 H 70-105 MG/DL Calcium Level 9.5 8.5-10.1 MG/DL Corrected Calcium 9.5 8.5-10.1 MG/DL Magnesium Level 2.1 1.8-2.4 MG/DL Total Bilirubin 0.3 0.1-1.0 MG/DL Aspartate Amino Transf (AST/SGOT) 14 5-34 U/L Alanine Aminotransferase (ALT/SGPT) 19 0-55 U/L Alkaline Phosphatase 103 40-136 U/L Myoglobin 27.0 10.0-92.0 NG/ML Troponin I < 0.30 <0.30 NG/ML B-Type Natriuretic Peptide 26.8 <100.0 PG/ML Total Protein 7.2 6.4-8.2 GM/DL Albumin 4.0 3.2-4.5 GM/DL Lipase 40 8-78 U/L My Orders Orders - LORETTA RODRIGUEZ APRN Cbc With Automated Diff (09/20/18 15:42) Magnesium (09/20/18 15:42) Chest 1 View, Ap/Pa Only (09/20/18 15:42) Ekg Tracing (09/20/18 15:42) Cardiac Profile 1 (09/20/18 15:42) Comprehensive Metabolic Panel (09/20/18 15:42) Myoglobin Serum (09/20/18 15:42) Protime With Inr (09/20/18 15:42) Partial Thromboplastin Time (09/20/18 15:42) O2 (09/20/18 15:42) Monitor-Rhythm Ecg Trace Only (09/20/18 15:42) Lipid Panel (09/21/18 06:00) Aspirin Chewable Tablet (Baby Aspirin Ch (09/20/18 15:45) Nitroglycerin 0.4 Mg Btl 25's (Nitrostat (09/20/18 15:45) Saline Lock/Iv-Start (09/20/18 15:42) Lipase (09/20/18 15:42) BNP (09/20/18 15:42) Fibrin Degradation Products (09/20/18 15:42) Troponin I (09/20/18 16:49) Medications Given in ED Current Medications Medications Dose Ordered Sig/Yoon Route Start Time Stop Time Status Last Admin Dose Admin Aspirin 324 mg ONCE ONCE PO 09/20/18 15:45 09/20/18 15:46 DC 09/20/18 15:40 324 MG Vital Signs/I&O 09/20/18 09/20/18 15:38 15:38 Temp 97.3 Pulse 88 Resp 20 B/P (MAP) 149/71 (97) Pulse Ox 95 O2 Delivery Room Air Blood Pressure Mean: 97 Departure Communication (Admissions) 1659-Since her pain is sharp in nature, tender to palpation this would not be typical of cardiac ischemia pain. HEART score 3 points--->Risk of MACE of 0.9- 1.7%. I'll keep her for a 3 hour troponin at 6 PM tonight. She is still negative , will discharge home. Impression Primary Impression: Chest pain Qualified Codes: R07.82 - Intercostal pain Disposition: HOME, SELF-CARE Condition: Stable Departure-Patient Inst. Decision time for Depature: 18:23 Referrals: [facility] (PCP/Family) Primary Care Physician Patient Instructions: Chest Pain (DC) Add. Discharge Instructions: 1. Call Dr. Rhoades tomorrow to make an appointment to be seen for follow-up 2. Return to ER for any shortness of breath, severe or intolerable pain or other concerns. All discharge instructions reviewed with patient and/or family. Voiced understanding. Images Torso/Trunk 1 - Tenderness LORETTA RODRIGUEZ APRN Sep 20, 2018 15:49
[2018-09-20 15:57] LABS: PROTHROMBIN TIME PATIENT 12.6 SEC (12.2-14.7)
[2018-09-20 16:04] LABS: ALANINE AMINOTRANSFERASE 19 U/L (0-55); ALKALINE PHOSPHATASE 103 U/L (40-136); BILIRUBIN,TOTAL 0.3 MG/DL (0.1-1.0); BUN/CREATININE RATIO 23; CALCIUM 9.5 MG/DL (8.5-10.1); CARBON DIOXIDE 21 MMOL/L (21-32); CHLORIDE 108 MMOL/L (98-107); CREATININE SERUM 0.66 MG/DL (0.60-1.30); GFR ESTIMATED > 60; GLUCOSE 111 MG/DL (70-105); LIPASE 40 U/L (8-78); MAGNESIUM 2.1 MG/DL (1.8-2.4); POTASSIUM 3.7 MMOL/L (3.6-5.0); SODIUM 141 MMOL/L (135-145); TOTAL PROTEIN 7.2 GM/DL (6.4-8.2)
--- NOTE | 2018-09-20 16:22 | Diagnostic Imaging Report ---
Indication: Tingling, lightheadedness, pain. Findings: Lungs are clear. Heart vessels normal. There is no effusion or pneumothorax. Impression: Negative. Dictated by: Dictated on workstation # [id number]
[2018-09-20 19:12] VITALS: BP 149/104
== END 2018-09-20 19:12 | disposition home or self-care (01) ==
LOC: EDUNIT# 15:32 → ER 15:33
DX: R07.89 Other chest pain (principal); I10 Essential (primary) hypertension; Z88.0 Allergy status to penicillin; Z82.49 Family history of ischemic heart disease and other diseases of the circulatory system; Z88.5 Allergy status to narcotic agent; Z98.890 Other specified postprocedural states
CPT/HCPCS: 36415; 71045; 80053; 83690; 83735; 83874; 83880; 84484; 85025; 85379; 85610; 85730; 93005; 93041

== ENCOUNTER → 2018-10-30 | Outpatient (CLI) | payer OTHER ==
[~2018-10-30] MED LIST changes: +CATHETER FLUSH 10 ML SYR IV PRN
--- NOTE | 2018-10-30 13:18 | STRESS TEST ---
DATE OF SERVICE: 10/30/2018 EXERCISE MYOVIEW STRESS TEST REPORT REFERRING PHYSICIAN: [facility]. Baseline heart rate is 82, baseline blood pressure 144/96. Baseline EKG is sinus rhythm with no ischemic changes. In summary, the patient was injected with 10.39 mCi of technetium-99 Myoview and the resting images were obtained. Then, the patient started exercising with a baseline heart rate, blood pressure and EKG mentioned above. The patient was able to exercise for a total of 4 minutes on standard [place] protocol, achieving maximum heart rate of 146, which is 91% of maximum expected heart rate. With peak exercise level, EKG was showing [address] depression in II, III, aVF, V4 and V5. Blood pressure was 165/96. During recovery, heart rate and blood pressure returned to baseline. EKG returned to baseline. The resting and stress images were reviewed and compared in the short axis, horizontal long axis, and vertical long axis views. Review of the images showed good radiotracer uptake with no significant ischemia or infarction. SSS is 1, SDS 1, TID value 1.07. On the gated images, the left ventricle appeared to be normal size with normal contractility. Calculated ejection fraction 65%. CONCLUSION: 1. Fair exercise tolerance, a total of 4 minutes on standard [place] protocol, total of 5.8 METS achieving 91% of maximum expected heart rate. 2. Appropriate heart rate and blood pressure response to exercise returned to baseline during recovery. 3. Minimal nondiagnostic EKG changes with exercise returned to baseline during recovery. 4. Breast attenuation with no significant ischemia or infarction on SPECT images. 5. Normal left ventricular size with normal contractility. Calculated ejection fraction 65%. Job ID: [id number] DocumentID: [id number] Dictated Date: 10/30/2018 11:55:08 Ladle Mechanic Date: 10/30/2018 13:17:51 Dictated By: MELIZA MARSHALL MD
== END ==
LOC: CARD 08:22
PROVIDERS: ATTEND Internal Medicine Cardiovascular Disease
DX: R07.9 Chest pain, unspecified (principal); I10 Essential (primary) hypertension; R00.2 Palpitations; I47.1 Supraventricular tachycardia; Z72.0 Tobacco use
CPT/HCPCS: 78452; 93017

== ENCOUNTER 2020-05-29 14:55 | Emergency (ER) | payer OTHER ==
[~2020-05-29] VITALS: Ht 165.1 cm; Wt 80.0 kg
[~2020-05-29 14:55] MED LIST changes: -CATHETER FLUSH 10 ML SYR IV PRN
--- NOTE | 2020-05-29 15:20 | ED Fall/Injury ---
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 She did not lose consciousness but she did immediately vomits thereafter and had no nausea since then. EMS did not give her anything for pain. She rates her pain as a 6 out of 10. She says she has pain in her left hip, low back, right elbow and the side of her head from the fall but not bad enough to need any pain medicine. She denies nausea now. No fevers chills cough sweats diarrhea constipation. She takes aspirin but no blood thinners. Allergies and Home Medications Allergies Coded Allergies: NKANo Known Allergies (Verified Allergy, Unknown, 07/18/07) Penicillins (Verified Allergy, Unknown, 11/06/15) amoxicillin (Verified Allergy, Unknown, 11/06/15) codeine (Verified Allergy, Unknown, 11/06/15) morphine (Verified Allergy, Unknown, 11/06/15) oxycodone (Verified Allergy, Unknown, 11/06/15) Home Medications Ibuprofen 600 Mg Tablet, 600 MG PO TID PRN for PAIN Prescribed by: OLESYA GIPSON on 11/06/15 1636 Patient Home Medication List Home Medication List Reviewed: Yes Review of Systems Review of Systems Constitutional: No chills, No fever, No malaise, No weakness Eyes: Denies Blindness, Denies Blurred Vision Ears, Nose, Mouth, Throat: denies ear pain, denies ear discharge Respiratory: No cough, No phlegm Cardiovascular: No chest pain, No edema Gastrointestinal: No abdominal pain, No constipation, No diarrhea; nausea; No vomiting Genitourinary: No discharge, No dysuria Musculoskeletal: see HPI, back pain, joint pain; No neck pain All Other Systems Reviewed Negative Unless Noted: Yes Past Nezrdml-Hzowfk-Qazwck Hx Patient Social History Alcohol Use: Denies Use Recreational Drug Use: No Smoking Status: Current Everyday Smoker (quarter pack per day) Type Used: Cigarettes Recent Hopitalizations: Yes Past Medical History Surgeries: Yes (HEART CATH) Respiratory: No Currently Using CPAP: No Currently Using BIPAP: No Cardiac: Yes (tachycardia) Hypertension Neurological: No Reproductive Disorders: No Genitourinary: No Gastrointestinal: No Musculoskeletal: No Endocrine: No Cancer: No Psychosocial: No Integumentary: Yes Psoriasis Blood Disorders: No Family Medical History Cardiovascular disease 19 FATHER (cva) G8 BROTHER (htn/cva) Diabetes mellitus 19 MOTHER G8 BROTHER Respiratory disorder G8 BROTHER Seizure disorder G8 SISTER CAD Under 55 Years Old Physical Exam Vital Signs Vital Signs - First Documented 05/29/20 15:00 Temp 36.8 Pulse 76 Resp 18 B/P (MAP) 114/66 (82) Pulse Ox 97 O2 Delivery Room Air Capillary Refill : Height, Weight, BMI Height: 5'4.00" Weight: 200lbs. 8.0oz. 90.569287rk; 32.5 BMI Method:Stated General Appearance: WD/WN, mild distress HEENT: PERRL/EOMI, normal ENT inspection, TMs normal, pharynx normal, other (tenderness to the right parietal scalp without hematoma or laceration. Negative for Laura sign or hemotympanum. Negative for raccoon eyes) Neck: non-tender, supple, normal inspection (c-collar in place) Cardiovascular: normal peripheral pulses, regular rate, rhythm, no edema Respiratory: lungs clear, normal breath sounds, no respiratory distress Peripheral Pulses: 2+ Dorsalis Pedis (R), 2+ Left Dors-Pedis (L), 2+ Radial Pulses (R), 2+ Radial Pulses (L) Gastrointestinal: normal bowel sounds, non tender, soft Pelvic: normal external exam, other (tenderness over the left hip/proximal femur) Back: normal inspection, no CVA tenderness, vertebral tenderness (lumbar spine and lower thoracic spine tender to palpation midline) Extremities: normal range of motion, normal capillary refill, other (large ecchymoses approximately 8 cm diameter over the right elbow with normal range of motion, no crepitus but some bone tenderness. Right shoulder mildly tender with full range of motion active and passive. No deformity or crepitus.) Neurologic/Psychiatric: no motor/sensory deficits, alert, normal mood/affect, oriented x 3 Skin: warm/dry (intact), ecchymosis (over the right elbow) [place] Coma Score Best Eye Response: (4) Open Spontaneously Best Verbal Response: (5) Oriented Best Motor Response: (6) Obeys Commands Jonny Total: 15 Progress/Results/Core Measures Results/Orders My Orders Orders - ANTONIA CAMILO Ct Head/Cervical Spine Wo (05/29/20 15:11) Ct Thoracic/Lumbar Spine Wo (05/29/20 15:11) Chest 1 View, Ap/Pa Only (05/29/20 15:11) Shoulder, Right, 3 Views (05/29/20 15:11) Elbow, Right, 3 Views (05/29/20 15:11) Hip, Left, 2 Views (05/29/20 15:11) Vital Signs/I&O 05/29/20 15:00 Temp 36.8 Pulse 76 Resp 18 B/P (MAP) 114/66 (82) Pulse Ox 97 O2 Delivery Room Air Progress Progress Note #1: Time: 15:21 Progress Note She declined any pain medicine at this time. Plan to get a CT without IV contrast of her head, C-spine, thoracic spine, lumbar spine and get plain films of her left hip right elbow. Progress Note #2: Time: 17:10 Progress Note C-collar cleared radiographically and clinically. Patient's daughter who speaks fluent Bangladeshi was brought back and explained the results. Counseling was given. Diagnostic Imaging Diagonstic Imaging: CT Plain Films/CT/US/NM/MRI: c-spine, head Comments [facility], [place] NAME: NOA JEFFREY [facility] REC#: [id number] PT STATUS: REG ER : 1960 PHYSICIAN: ANTONIA CAMILO MD ADMIT DATE: 05/29/20/ER Signed Date of Exam:05/29/20 CT HEAD/CERVICAL SPINE WO PROCEDURE: CT head and CT cervical spine without contrast. TECHNIQUE: Multiple contiguous axial images were obtained through the brain and cervical spine without the use of intravenous contrast. Sagittal and coronal reformations through the cervical spine were then performed. Auto Exposure Controls were utilized during the CT exam to meet ALARA standards for radiation dose reduction. INDICATION: Head injury from a fall CT HEAD: The ventricles are normal in size, shape and position. There are no masses or hemorrhages. There are no extra-axial fluid collections. IMPRESSION: Negative CT head CT CERVICAL SPINE: Vertebral body height and alignment appear normal. There is mild degenerative disc changes at C5-C6 and C6-C7. There is some degenerative change of the facet joint on the left at C4-C5. Odontoid is intact. Atlantoaxial and basocervical relationship appear normal. There is no fracture or prevertebral soft tissue swelling. IMPRESSION: Mild degenerative changes. No acute abnormalities seen. Dictated by: Dictated on workstation # [id number] Dict: 05/29/20 1614 Trans: 05/29/20 161 [id number] Interpreted by: ARTURO GARVIN MD Electronically signed by: ARTURO GARVIN MD 05/29/201615 Reviewed: Reviewed by Me Diagonstic Imaging: CT Plain Films/CT/US/NM/MRI: other (thoracic or lumbar spine, without IV cont rast) Comments [facility] [place] NAME: NOA JEFFREY R [facility] REC#: [id number] PT STATUS: REG ER : 1960 PHYSICIAN: ANTONIA CAMILO MD ADMIT DATE: 05/29/20/ER Signed Date of Exam:05/29/20 CT THORACIC/LUMBAR SPINE WO PROCEDURE: CT thoracic and lumbar spine without contrast. TECHNIQUE: Multiple contiguous axial images were obtained through the thoracic and lumbar spine without the use of intravenous contrast. Sagittal and coronal reformations were then performed.All CT scans use one or more of the following dose optimizing techniques: automated exposure control, MA and/or KvP adjustment based on a patient size and exam type, or iterative reconstruction. INDICATION: Back injury from a fall Vertebral body height and alignment appear normal. There is mild spondylosis throughout the thoracic spine and lumbar spine with anterior osteophytes formation at multiple levels. There is degenerative disc changes at L5-S1 with vacuum disc phenomena. Minimal degenerative changes are noted elsewhere in the discs. The posterior elements are intact. There are no fractures seen. IMPRESSION: Mild degenerative changes of the thoracic spine. No acute abnormality seen. Dictated by: Dictated on workstation # [id number] Dict: 05/29/20 1616 Trans: 05/29/20 162 [id number] Interpreted by: ARTURO GARVIN MD Electronically signed by: ARTURO GARVIN MD 05/29/20 1620 Reviewed: Reviewed by Me Diagonstic Imaging: Xray Plain Films/CT/US/NM/MRI: elbow (right) Comments [facility] [place] [place] NAME: NOA JEFFREY [facility] REC#: [id number] PT STATUS: REG ER : 1960 PHYSICIAN: ANTONIA CAMILO MD ADMIT DATE: 05/29/20/ER Signed Date of Exam:05/29/20 ELBOW, RIGHT, 3 VIEWS INDICATION: Pain status post fall. COMPARISON: None. FINDINGS: Three views of the right elbow show no fractures, dislocations, or other acute bony abnormalities identified. Joint spaces are well maintained throughout. The soft tissues appear unremarkable. No radiopaque foreign bodies are identified. IMPRESSION: No acute fractures or dislocations of the right elbow. Dictated by: Dictated on workstation # [id number] Dict: 05/29/20 1557 Trans: 05/29/20 1649 [id number] Interpreted by: FRANCES MERCADO MD Electronically signed by: FRANCES MERCADO MD 05/29/20 164 Reviewed: Reviewed by Me Diagonstic Imaging: Xray Plain Films/CT/US/NM/MRI: hip (left) Comments NAME: NOA JEFFREY [facility] REC#: [id number] PT STATUS: REG ER : 1960 PHYSICIAN: ANTONIA CAMILO MD ADMIT DATE: 05/29/20/ER Signed Date of Exam:05/29/20 HIP, LEFT, 2 VIEWS INDICATION: Left hip injury from a fall. EXAMINATION: Two views of the left hip were obtained. FINDINGS: No fracture or dislocation. There are some degenerative changes with slight cortical irregularity of the acetabular articular surface. IMPRESSION: Degenerative changes of the left hip. No fracture or acute abnormality is seen. Dictated by: Dictated on workstation # [id number] Dict: 05/29/20 1557 Trans: 05/29/20 1601 E [id number] Interpreted by: ARTURO GARVIN MD Electronically signed by: ARTURO GARVIN MD 05/29/20 1601 Diagonstic Imaging: Xray Plain Films/CT/US/NM/MRI: chest Comments [facility] [place] [place] NAME: NOA JEFFREY [facility] REC#: [id number] PT STATUS: REG ER : 1960 PHYSICIAN: ANTONIA CAMILO MD ADMIT DATE: 05/29/20/ER Signed Date of Exam:05/29/20 CHEST 1 VIEW, AP/PA ONLY INDICATION: Pain. Fall. COMPARISON: 09/20/2018. FINDINGS: Single frontal view of the chest demonstrates normal heart size and pulmonary vascularity. The lungs are well aerated and clear. No large pleural effusion or pneumothorax is seen. The visualized osseous structures show no acute abnormalities. IMPRESSION: 1. No acute cardiopulmonary process. Dictated by: Dictated on workstation # [id number] Dict: 05/29/20 1556 Trans: 05/29/20 1648 [facility] [id number] Interpreted by: FRANCES MERCADO MD Electronically signed by: FRANCES MERCADO MD 05/29/20 1648 Reviewed: Reviewed by Me Diagonstic Imaging: Xray Plain Films/CT/US/NM/MRI: other (right shoulder) Comments [facility] [place] [place] NAME: NOA JEFFREY [facility] REC#: [id number] PT STATUS: REG ER : 1960 PHYSICIAN: ANTONIA CAMILO MD ADMIT DATE: 05/29/20/ER Signed Date of Exam:05/29/20 SHOULDER, RIGHT, 3 VIEWS INDICATION: Pain status post fall. COMPARISON: None. FINDINGS: Three views of the right shoulder were obtained. There is no fracture, dislocation, or other acute bony abnormality identified. The soft tissues appear unremarkable. No radiopaque foreign bodies identified. The visualized portions of the right lung are clear. IMPRESSION: No acute fractures or dislocations of the right shoulder. Dictated by: Dictated on workstation # [id number] Dict: 05/29/20 1558 Trans: 05/29/20 1649 [facility] [phone] Interpreted by: FRANCES MERCADO MD Electronically signed by: FRANCES MERCADO MD 05/29/20 1649 Reviewed: Reviewed by Me Departure Impression Primary Impression: Fall Qualified Codes: W19.XXXA - Unspecified fall, initial encounter Additional Impressions: Concussion Qualified Codes: S06.0X0A - Concussion without loss of consciousness, initial encounter Contusion of right elbow Qualified Codes: S50.01XA - Contusion of right elbow, initial encounter Disposition: 01 HOME, SELF-CARE Condition: Stable Departure-Patient Inst. Decision time for Depature: 17:02 Referrals: NO,LOCAL PHYSICIAN (PCP/Family) Primary Care Physician Patient Instructions: Concussion in Adults, Contusion (DC) Add. Discharge Instructions: You have a large bruise on your elbow which should go away over the next 1-2 weeks. Use an ice pack alternated with heat, Tylenol and ibuprofen as necessary. Because you got hit hard enough to become nauseated it's very possible you have a concussion. Concussions cannot be seen on imaging and will go away on their own with time. The initial low stimuli environment for the next 1-2 days. If you are overdoing it then you will start to experience symptoms of a concussion which include irritable to, nausea, difficulty concentrating, headache. Please review the handouts. If you start to have symptoms of a concussion then you need to get sleep. It's okay to take Tylenol or Motrin for pain. Ondansetron 4 mg under the tongue every 6 hours as needed for nausea or vomiting. Return to your doctor for help managing symptoms if needed. All discharge instructions reviewed with patient and/or family. Voiced understanding. Scripts Ondansetron (Ondansetron Odt) 4 Mg Tab.rapdis 4 MG PO Q6H PRN for NAUSEA/VOMITING, #8 TAB 0 Refills Prov: ANTONIA CAMILO 05/29/20 Work/School Note: Work Release Form Date Seen in the Emergency Department: May 29, 2020 Return to Work: Jun 02, 2020 Restrictions: No Restrictions ANTONIA CAMILO May 29, 2020 15:19
--- NOTE | 2020-05-29 15:59 | Diagnostic Imaging Report ---
INDICATION: Pain. Fall. COMPARISON: 09/20/2018. FINDINGS: Single frontal view of the chest demonstrates normal heart size and pulmonary vascularity. The lungs are well aerated and clear. No large pleural effusion or pneumothorax is seen. The visualized osseous structures show no acute abnormalities. IMPRESSION: 1. No acute cardiopulmonary process. Dictated by: Dictated on workstation # [id number]
--- NOTE | 2020-05-29 16:00 | Diagnostic Imaging Report ---
INDICATION: Left hip injury from a fall. EXAMINATION: Two views of the left hip were obtained. FINDINGS: No fracture or dislocation. There are some degenerative changes with slight cortical irregularity of the acetabular articular surface. IMPRESSION: Degenerative changes of the left hip. No fracture or acute abnormality is seen. Dictated by: Dictated on workstation # [id number]
--- NOTE | 2020-05-29 16:00 | Diagnostic Imaging Report ---
INDICATION: Pain status post fall. COMPARISON: None. FINDINGS: Three views of the right elbow show no fractures, dislocations, or other acute bony abnormalities identified. Joint spaces are well maintained throughout. The soft tissues appear unremarkable. No radiopaque foreign bodies are identified. IMPRESSION: No acute fractures or dislocations of the right elbow. Dictated by: Dictated on workstation # [id number]
--- NOTE | 2020-05-29 16:01 | Diagnostic Imaging Report ---
INDICATION: Pain status post fall. COMPARISON: None. FINDINGS: Three views of the right shoulder were obtained. There is no fracture, dislocation, or other acute bony abnormality identified. The soft tissues appear unremarkable. No radiopaque foreign bodies identified. The visualized portions of the right lung are clear. IMPRESSION: No acute fractures or dislocations of the right shoulder. Dictated by: Dictated on workstation # [id number]
--- NOTE | 2020-05-29 16:18 | Diagnostic Imaging Report ---
PROCEDURE: CT head and CT cervical spine without contrast. TECHNIQUE: Multiple contiguous axial images were obtained through the brain and cervical spine without the use of intravenous contrast. Sagittal and coronal reformations through the cervical spine were then performed. Auto Exposure Controls were utilized during the CT exam to meet ALARA standards for radiation dose reduction. INDICATION: Head injury from a fall CT HEAD: The ventricles are normal in size, shape and position. There are no masses or hemorrhages. There are no extra-axial fluid collections. IMPRESSION: Negative CT head CT CERVICAL SPINE: Vertebral body height and alignment appear normal. There is mild degenerative disc changes at C5-C6 and C6-C7. There is some degenerative change of the facet joint on the left at C4-C5. Odontoid is intact. Atlantoaxial and basocervical relationship appear normal. There is no fracture or prevertebral soft tissue swelling. IMPRESSION: Mild degenerative changes. No acute abnormalities seen. Dictated by: Dictated on workstation # [id number]
--- NOTE | 2020-05-29 16:21 | Diagnostic Imaging Report ---
PROCEDURE: CT thoracic and lumbar spine without contrast. TECHNIQUE: Multiple contiguous axial images were obtained through the thoracic and lumbar spine without the use of intravenous contrast. Sagittal and coronal reformations were then performed.All CT scans use one or more of the following dose optimizing techniques: automated exposure control, MA and/or KvP adjustment based on a patient size and exam type, or iterative reconstruction. INDICATION: Back injury from a fall Vertebral body height and alignment appear normal. There is mild spondylosis throughout the thoracic spine and lumbar spine with anterior osteophytes formation at multiple levels. There is degenerative disc changes at L5-S1 with vacuum disc phenomena. Minimal degenerative changes are noted elsewhere in the discs. The posterior elements are intact. There are no fractures seen. IMPRESSION: Mild degenerative changes of the thoracic spine. No acute abnormality seen. Dictated by: Dictated on workstation # [id number]
--- NOTE | 2020-05-29 17:10 | NUR ---
Cervical collar cleared by Dr. Mckinney at 1710
[2020-05-29] MEDS ORDERED: ONDA4TAB11 PO (17:15)
[2020-05-29 17:32] VITALS: BP 128/72
== END 2020-05-29 17:32 | disposition home or self-care (01) ==
LOC: EDUNIT# 14:55 → ER 14:56
DX: S06.0X0A Concussion without loss of consciousness, initial encounter (principal); S50.01XA Contusion of right elbow, initial encounter; F17.210 Nicotine dependence, cigarettes, uncomplicated; L40.9 Psoriasis, unspecified; I10 Essential (primary) hypertension; W01.0XXA Fall on same level from slipping, tripping and stumbling without subsequent striking against object, initial encounter; Y93.E5 Activity, floor mopping and cleaning; Y99.0 Civilian activity done for income or pay; Z88.0 Allergy status to penicillin; Z88.1 Allergy status to other antibiotic agents; Z88.5 Allergy status to narcotic agent
CPT/HCPCS: 70450; 71045; 72125; 72128; 72131; 73030; 73080; 73502

== ENCOUNTER 2023-01-20 19:56 | Emergency (ER) | payer OTHER ==
[~2023-01-20] VITALS: Ht 165.1 cm; Wt 86.2 kg
[~2023-01-20 19:56] MED LIST changes: +ONDA4TAB11 PO
--- NOTE | 2023-01-20 20:20 | ED EENT ---
History of Present Illness General Stated Complaint: CHEMICAL IN LEFT EYE Source: patient, family Exam Limitations: no limitations, language barrier History of Present Illness Date Seen by Provider: Jan 20, 2023 Time Seen by Provider: 20:17 Initial Comments Patient is a 62-year-old female who is a speaking presents ED for left eye pain, irritation. 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 She states yesterday around 2 PM when she poured a natural hard surface straight knife machine cutter liquid into a bucket Sani-T (pink fluid) when some of it splashed hitting her left outer eye. She denies irrigating the left eye. She denies immediate pain. started having some irritation later in the day and started scratching. She did not get evaluated yesterday. She noticed some redness and pain around the left eye today and a area of pus to the lower eyelid. Denies of any eye redness, visual changes, headache, dizziness, contacts. Patient not up-to-date on her immunization. Allergies and Home Medications Allergies Coded Allergies: NKANo Known Allergies (Verified Allergy, Unknown, 07/18/07) Penicillins (Verified Allergy, Unknown, 11/06/15) amoxicillin (Verified Allergy, Unknown, 11/06/15) codeine (Verified Allergy, Unknown, 11/06/15) morphine (Verified Allergy, Unknown, 11/06/15) oxycodone (Verified Allergy, Unknown, 11/06/15) Patient Home Medication List Home Medication List Reviewed: Yes Ibuprofen (Ibuprofen) 600 Mg Tablet, 600 MG PO TID PRN for PAIN Prescribed by: OLESYA GIPSON on 11/06/15 1636 Ondansetron (Ondansetron Odt) 4 Mg Tab.rapdis, 4 MG PO Q6H PRN for NAUSEA /VOMITING Prescribed by: ANTONIA CAMILO on 05/29/20 171 Polymyxin B Sulf/Trimethoprim (Polytrim Eye Drops) 10,000 Unit-1 Mg/Ml Drops, 2 DROP OP Q6H Prescribed by: KACEY MCADAMS on 01/20/232035 Review of Systems Review of Systems Constitutional: No chills, No diaphoresis, No malaise, No weakness Eyes: Denies Blindness, Denies Blurred Vision, Denies Drainage, Denies Decreased Acuity; Pain Ears: Denies Dizziness, Denies Pain Nose: denies clots, denies congestion Mouth: denies clots Throat: denies pain, denies swelling Cardiovascular: chest pain Gastrointestinal: No abdominal pain, No diarrhea, No nausea, No vomiting Musculoskeletal: No back pain, No joint pain All Other Systems Reviewed Negative Unless Noted: Yes Past Wvjsiis-Ekcflt-Snodpa Hx Past Medical History Surgeries: Yes (HEART CATH, Ablation ) Respiratory: No Currently Using CPAP: No Currently Using BIPAP: No Cardiac: Yes (tachycardia) Hypertension Neurological: No Reproductive Disorders: No Genitourinary: No Gastrointestinal: No Musculoskeletal: No Endocrine: No Cancer: No Psychosocial: No Integumentary: Yes Psoriasis Blood Disorders: No Family Medical History Cardiovascular disease 19 FATHER (cva) G8 BROTHER (htn/cva) Diabetes mellitus 19 MOTHER G8 BROTHER Respiratory disorder G8 BROTHER Seizure disorder G8 SISTER CAD Under 55 Years Old Physical Exam Vital Signs Vital Signs - First Documented 01/20/23 20:00 Temp 35.6 Pulse 72 Resp 17 B/P (MAP) 150/75 (100) O2 Delivery Room Air Height, Weight, BMI Height: 5'4.00" Weight: 200lbs. 8.0oz. [id number]; 29.00 BMI Method:Stated General Appearance: WD/WN, no apparent distress Eyes: left eye PERRL, left eye EOMI, left eye lid inflammation, left eye lid injury, left eye other (Negative Viridiana sign. No evidence of ulcerations. Mild erythematous injection. No periorbital swelling. Mild erythema to the left lower eyelid with a small pustule. No fluctuant mass.) Ears: bilateral ear auricle normal, bilateral ear canal normal, bilateral ear TM normal Nose: normal inspection Mouth/Throat: normal mouth inspection, pharynx normal, dental tenderness Neck: non-tender, full range of motion, supple Cardiovascular: regular rate, rhythm, no edema, no gallop, no JVD Respiratory: chest non-tender, lungs clear, normal breath sounds, no re spiratory distress Progress/Results/Core Measures Results/Orders My Orders Orders - AMELIA PONCE Tetracaine 0.5% Ophth Lala Sdv (Tetracai (01/20/23 20:30) Fluorescein Strips ([id number]) (01/20/23 20:30) Fluorescein Strips ([id number]) (01/20/23 20:23) Tetracaine 0.5% Ophth Lala Sdv (Tetracai (01/20/23 20:23) Dipht,Pertuss(Acell),Tet Adult (Boostrix (01/20/23 20:45) Dipht,Pertuss(Acell),Tet Adult (Boostrix (01/20/23 20:43) Medications Given in ED Current Medications Medications Dose Ordered Sig/Yoon Route Start Time Stop Time Status Last Admin Dose Admin Diphtheria/ Tetanus/Acell Pertussis 0.5 ml ONCE ONCE IM 01/20/23 20:45 01/20/23 20:54 DC 01/20/23 20:45 0.5 ML Fluorescein Sodium ONCE ONCE OP 01/20/23 20:30 01/20/23 20:31 DC 01/20/23 20:27 1 MG Tetracaine HCl 1 OR 2 DROPS INTO AFFEC... 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 She did not irrigate the eye afterwards as she did not have pain. She does not believe chemical touched her eyeball. She denied immediate pain but started having irritation and immediately started to scratch her eyelid. Woke up this morning with some very minimal eye irritation but more redness and swelling to the left lower eyelid. Small pustule. On exam no significant erythematous injection. Pupils reactive light. Eye PH 7 on litmus paper. Eye exam with tetracaine and Solorio lamp showed no ulcerations. Negative Viridiana sign. Small pustule to the left lower eyelid. I was able to remove. No significant swelling or redness around the eye. No pain with eye movement. She does not appear to have significant exposure to the left eye. Appears to be more the lower eyelid. Did irrigate with 200 ml of normal saline here. She tolerated procedure well. She does not wear contacts. Due to the eyelid irritation and mild erythematous injection. Patient will be discharged with Polytrim eyedrops. Updated tetanus. Optometry follow-up in the next 1 to 2 days for reevaluation. Unlikely significant chemical exposure to the eyeball from patient's history and exam. Visual acuity 20/ 50 left and right and 20/30 together. Impression Primary Impression: Irritation of eyelid Disposition: HOME, SELF-CARE Condition: Stable Departure-Patient Inst. Decision time for Depature: 20:34 Referrals: [facility] [place] ([place]) Primary Care Physician Patient Instructions: Chemical Eye Injury Add. Discharge Instructions: Recommend following up with gang worker for further evaluation. [facility]- [phone] Recommend eyedrops. If any worsening symptoms such as visual changes return back to ED Scripts Polymyxin B Sulf/Trimethoprim (Polytrim Eye Drops) 10,000 Unit-1 Mg/Ml Drops 2 DROP OP Q6H for 7 Days, #1 DROPS Prov: AMELIA PONCE 01/20/23 AMELIA PONCE Jan 20, 2023 20:20
[2023-01-20] MEDS ORDERED: FLUORESCEIN (FLUOR-I-STRIPS) 1 MG STRP ONE (20:23)
[2023-01-20] MEDS ORDERED: TETRACAINE 0.5% OPHTH SOLN 4 ML BTL (SINGLE DOSE ONLY) ONE (20:23)
[2023-01-20] MEDS ORDERED: TETRACAINE 0.5% OPHTH SOLN 4 ML BTL (SINGLE DOSE ONLY) OP ONE (20:30)
[2023-01-20] MEDS ORDERED: FLUORESCEIN (FLUOR-I-STRIPS) 1 MG STRP OP ONE (20:30)
[2023-01-20] MEDS ORDERED: POLY10DR OP (20:36)
[2023-01-20] MEDS ORDERED: TETANUS,DIPTH,PERTUSS P/F (BOOSTRIX) 0.5 ML VIAL IM ONE ×2 (20:43→20:45)
[2023-01-20 20:53] VITALS: BP 157/94
== END 2023-01-20 20:53 | disposition home or self-care (01) ==
LOC: EDUNIT# 19:56 → ER 19:58
DX: H57.89 Other specified disorders of eye and adnexa (principal); Z23 Encounter for immunization; Z77.098 Contact with and (suspected) exposure to other hazardous, chiefly nonmedicinal, chemicals; Z88.1 Allergy status to other antibiotic agents
CPT/HCPCS: 90715; 99282